=== PATIENT | male | born 1955 | race Caucasian/White ===

== ENCOUNTER 2021-12-19 10:15 | Outpatient (CLI) | payer MEDICARE, SELFPAY ==
--- NOTE | 2021-12-19 11:00 | NEURO_ITS ---
Impression: # Complains of numbness of hands. # Bilateral Carpal Tunnel Syndrome of moderate to severe degree, left more than right. # Right ulnar neuropathy across the elbow. # Abnormal needle/EMG exam. Nerve Conduction Studies Anti Sensory Summary Table Stim Site NR Peak (ms) P-T Amp (?V) Site1 Site2 Delta-P (ms) Dist (cm) Mayank (m/s) Left Median Anti Sensory (2-3nd Digit) Wrist 12.3 46.6 Wrist 2-3nd Digit 12.3 14.0 11 Wrist 11.4 5.5 Wrist 2-3nd Digit 12.3 14.0 11 Right Median Anti Sensory (2-3nd Digit) Wrist 5.9 9.4 Wrist 2-3nd Digit 5.9 14.0 24 Wrist 10.6 19.4 Wrist 2-3nd Digit 5.9 14.0 24 Left Radial Anti Sensory (Base 1st Digit) Wrist 2.3 16.5 Wrist Base 1st Digit 2.3 0.0 Right Radial Anti Sensory (Base 1st Digit) Wrist 2.7 4.9 Wrist Base 1st Digit 2.7 0.0 Left Ulnar Anti Sensory (5th Digit) Wrist 2.7 11.6 Wrist 5th Digit 2.7 14.0 52 Right Ulnar Anti Sensory (5th Digit) Wrist 2.8 4.2 Wrist 5th Digit 2.8 14.0 50 Motor Summary Table Stim Site NR Onset (ms) O-P Amp (mV) Site1 Site2 Delta-0 (ms) Dist (cm) Mayank (m/s) Left Median Motor (Abd Poll Brev) Wrist 8.0 1.8 Elbow Wrist 5.7 32.0 56 Elbow 13.7 0.1 Right Median Motor (Abd Poll Brev) Wrist 5.0 0.6 Elbow Wrist 5.9 28.0 47 Elbow 10.9 1.9 Left Ulnar Motor (Abd Dig Minimi) Wrist 2.7 5.3 A Elbow Wrist 6.0 31.0 52 A Elbow 8.7 4.1 Right Ulnar Motor (Abd Dig Minimi) Wrist 3.0 4.0 A Elbow Wrist 6.4 31.0 48 A Elbow 9.4 3.5 B Elbow Wrist 4.7 21.0 45 B Elbow 7.7 2.8 F Wave Studies NR F-Lat (ms) L-R F-Lat (ms) Left Median (Mrkrs) (Abd Poll Brev) 31.75 1.17 Right Median (Mrkrs) (Abd Poll Brev) 32.92 1.17 Left Ulnar (Mrkrs) (Abd Dig Min) 30.56 0.73 Right Ulnar (Mrkrs) (Abd Dig Min) 31.29 0.73 EMG Side Muscle Nerve Root Ins Act Fibs Amp Dur Recrt Comment Right 1stDorInt Ulnar C8-T1 Nml Nml Nml Nml Nml Right Ext Indicis Radial (Post Int) C7-8 Nml Nml Nml Nml Nml Right Ext Digitorum Radial (Post Int) C7-8 Nml Nml Nml Nml Nml Right BrachioRad Radial C5-6 Nml Nml Nml Nml Nml Right PronatorTeres Median C6-7 Nml Nml Nml Nml Nml Right Abd Poll Brev Median C8-T1 Nml Nml Nml >12ms Reduced Left 1stDorInt Ulnar C8-T1 Nml Nml Nml Nml Nml Left Ext Indicis Radial (Post Int) C7-8 Nml Nml Nml Nml Nml Left Ext Digitorum Radial (Post Int) C7-8 Nml Nml Nml Nml Nml Left BrachioRad Radial C5-6 Nml Nml Nml Nml Nml Left PronatorTeres Median C6-7 Nml Nml Nml Nml Nml Left Abd Poll Brev Median C8-T1 Nml Nml Nml >12ms Reduced Right ABD Dig Min Ulnar C8-T1 Nml Nml Nml Nml Nml Left ABD Dig Min Ulnar C8-T1 Nml Nml Nml Nml Nml MTDD
== END 2021-12-19 10:16 | disposition home or self-care (01) ==
LOC: ANHNEURO 10:16
PROVIDERS: Visit Provider Physician Assistant
DX: R20.2 Paresthesia of skin (principal); G56.03 Carpal tunnel syndrome, bilateral upper limbs; G56.21 Lesion of ulnar nerve, right upper limb; R94.131 Abnormal electromyogram [EMG]
CPT/HCPCS: 95886; 95911

== ENCOUNTER 2024-03-11 07:47 | Outpatient (CLI) | payer MEDICARE, SELFPAY ==
--- NOTE | ~2024-03-11 | MR_ITS ---
Procedure: MR lumbar spine wo con Ordering provider: Cecilia Weiss, CARMINA History: . Lumbar radiculopathy . Comparison: None. Technique: MRI lumbar spine without contrast. FINDINGS: SPINAL CORD: Normal. The cord ends at the level of T12-L1. VERTEBRAL BODIES: Slight Loss of height of T12 is seen anteriorly which is chronic. Otherwise, Normal height and alignment. No compression fracture. Normal marrow signal. DISK SPACES: Normal. T12-L1: Mild diffuse disc bulge with mild spinal canal stenosis. Narrowing of the foramina with no de finite root compression. L1-L2: No stenosis. Slight thickening of the ligamenta flava. No significant intervertebral foraminal narrowing. L2-L3: Moderate spinal canal stenosis. Diffuse disc bulge. Thickening of the ligamenta flava. Bilater al narrowing of the foramina with no definite root compression. L3-L4: Severe spinal canal stenosis diffuse disc bulge. Thickening of the ligamenta flava. Bilateral facet joint disease. Bilateral narrowing of the foramina with bilateral nerve root compression. L4-L5: Severe spinal canal stenosis diffuse disc bulge. Thickening of the ligamenta flava. Bilateral nerve root compression. L5-S1: Mild diffuse disc bulge. PARASPINOUS SOFT TISSUES: Subcutaneous edema is noted. 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 IMPRESSION: No compression fracture. Multilevel degenerative disc disease with variable degrees of spinal canal stenosis, intervertebral f oraminal narrowing and with nerve root compression. Reviewed, dictated and finalized at location A. [employer] IMPRESSION: No compression fracture. Multilevel degenerative disc disease with variable degrees of spinal canal sten osis, intervertebral foraminal narrowing and with nerve root compression.
== END 2024-03-11 07:48 | disposition home or self-care (01) ==
LOC: MICIMG 07:49
PROVIDERS: PCP Physician Assistant; Visit Provider Physician Assistant
DX: M51.369 Other intervertebral disc degeneration, lumbar region without mention of lumbar back pain or lower extremity pain (principal); M48.061 Spinal stenosis, lumbar region without neurogenic claudication
CPT/HCPCS: 72148

== ENCOUNTER 2025-03-08 00:08 | Day surgery (SDC) | payer MEDICARE, SELFPAY ==
[2025-02-22 12:03] VITALS: BMI 41.8
--- OUTSIDE RECORDS SUMMARY | 2025-03-08 00:10 | XMS_ITS | Patient Health Record ---
Author Organization 1 OF [facility] Address [address] [place] [phone] Support Name Relationship Address Phone Adrián Rodríguez Guarantor Unknown Unavailable Reason For Referral No Information Plan Of Treatment No Information
--- OUTSIDE RECORDS SUMMARY | 2025-03-08 00:10 | XMS_ITS | Data Portability ---
Author Organization [facility] IQRAGillian Address [address] [facility] [place] [address] Care Team Providers Care Food Service Kitchen Supervisor Name Role Phone AUSTINRITU HERNÁNDEZ Primary Care Provider Unavailab le Assessment Encounter Date Assessment Date Assessment LastModified by Organization Details LastModified Time 08/16/2023 08/16/2023 PSA november 2022 microalbumin urine november 2022. Colonoscopy april 2019. repeat next 2024. completed at [facility]. Not available 08/16/2023 10:52:05 02/14/2024 02/14/2024 PSA november 2022, the lab didn't draw new orders that were sent. we will have to send him back microalbumin urine november 2022. Colonoscopy april 2019. repeat next year 2024. completed at [facility]. Sharon UTD eye exam dental exam: UTD routine cleanings. Not available 02/14/2024 10:46:43 08/21/2024 08/21/2024 PSA up-to-date January 2024 microalbumin urine July 2024 Colonoscopy april 2019. repeat next year 2024. completed at [facility]. Eye exam due in September, scheduled. dental exam: UTD routine cleanings. Not available 08/21/2024 11:03:47 02/26/2025 02/26/2025 PSA up-to-date January 2025 at 1.78 microalbumin urine July 2024 Colonoscopy april 2019. repeat next 2024. planned mar 09. Eye exam dental exam: UTD routine cleanings. Not available 02/26/2025 11:16:57 Plan of Treatment Reminders Order Date Submit Date Provider Last Modified By Organization Details Last Modified Time Details Appointments ANY 15 2025 10:30A M LEE Brewster Not available Not available Not available Lab HbA1c (hemog lobin A1c), blood 2024 026 [facility], [address], [address], [place], [address], 02/26/2025 11:02:22 microa lbumin /creat inine, mass ratio, urine 2024 026 [facility], [address], [address], [place], [address], 02/26/2025 11:02:22 BMP, serum or plasma 2024 026 [facility], [address], [address], [place], [address], 02/26/2025 11:02:22 hepati c functi on panel, serum 2024 026 [facility], [address], [address], [place], [address], 02/26/2025 11:02:22 lipid panel, serum 2024 026 [facility], [address], [address], [place], [address], 02/26/2025 11:02:22 CBC w/ auto diff 2024 026 [facility], [address], [address], [place], [address], 02/26/2025 11:02:22 BMP, serum or plasma 2024 025 KO [facility], [address], [place], [address], 02/18/2025 04:22:44 hepati c functi on panel, serum 2024 025 [facility], [address], [place], [address], 02/18/2025 04:22:44 CBC w/ auto diff 2024 025 [facility], [address], [place], [address], 02/18/2025 04:22:45 lipid panel, serum 2024 025 [facility], [address], [place], [address], 02/18/2025 04:22:43 TSH, serum or plasma 2024 025 [facility], [address], [address], [place], [address], 02/18/2025 04:22:46 HbA1c (hemog lobin A1c), blood 2024 025 [facility], [address], [place], [address], 02/18/2025 04:22:46 PSA, serum or plasma 2024 025 [facility], [address], [address], [place], [address], 02/18/2025 04:22:45 HbA1c (hemog lobin A1c), blood 2023 025 [facility], [address], [place], [address], 08/12/2024 11:16:30 microa lbumin /creat inine, mass ratio, urine 2023 025 [facility], [address], [address], [place], [address], 08/12/2024 11:16:29 BMP, serum or plasma 2023 025 [facility], [address], [place], [address], 08/12/2024 11:16:30 hepati c functi on panel, serum 2023 025 [facility], [address], [place], [address], 08/12/2024 11:16:30 CBC w/ auto diff 2023 025 [email or web address] [facility], [address], [place], [address], 08/20/2024 16:06:28 lipid panel, serum 2023 025 [facility], [address], [place], [address], 08/12/2024 11:16:30 HbA1c (hemog lobin A1c), blood 2023 024 [facility], [address], [place], [address], 08/19/2023 09:27:51 BMP, serum or plasma 2023 024 [facility], [address], [place], [address], 11/17/2023 09:54:42 hepati c functi on panel, serum 2023 024 [email or web address] [facility], [address], [place], [address], 09/05/2023 11:07:14 CBC w/ auto diff 2023 024 [email or web address] [facility], [address], [place], [address], 09/05/2023 11:07:14 lipid panel, serum 2023 024 KO [facility], [address], [place], [address], 08/19/2023 09:27:51 Referral None record ed. Procedures colono scopy screen ing (PROC) [address] [facility], [address], [address], [place], [address], 01/20/2025 11:49:06 Surgeries None record ed. Imaging MRI, lumbar spine, w/o contra st 2023 024 [facility], [address], [address], [place], [address], 03/11/2024 13:07:38 Medication Orders Ozempi c 2 mg/dos e (8 mg/3 mL) subcut aneous pen inject or 2024 025 [email or web address] [facility], [address] [place] [address], [address], [place], [place], [id number], 11/06/2024 21:20:42 hydroc hlorot hiazid e 25 mg tablet 2024 025 KO [facility], [address], [address], [place], [place], [id number], 08/21/2024 11:05:05 ipratr opium bromid e 42 mcg (0.06 %) nasal spray 2023 024 [id number], [address], [place], [address], 02/14/2024 10:46:48 Jardia nce 25 mg tablet 2023 024 [place] [facility], [address] [place] [address], [facility] [address], [place], [place], [id number], 08/16/2023 11:03:09 hydroc hlorot hiazid e 25 mg tablet 2023 024 KO [facility], [address] [place] [address], [address], [place], [place], [id number], 08/16/2023 11:03:09 Patient TargetsNo targets recorded. Patient Instructions Encounter Date Encounter Id Patient Instructions Last Modified By Organization Details Last Modified Time 02/14/2024 [id number] A healthy lifestyle: care instructions Not available 02/14/2024 10:46:45 08/21/2024 [id number] A healthy lifestyle: care instructions Not available 08/21/2024 11:05:00 02/26/2025 [id number] A healthy lifestyle: care instructions Not available 02/26/2025 11:02:22 Reason for Referral None Reported. Results Created Date Observation Date Name Description Value Unit Range Abnormal Flag Note LastModifiedBy Organization Detail LastModifiedTime 02/04/20 24 02/04/2024 HbA1c (hemo globi n A1c), blood HbA1C (hemoglobin A1C), blood 6.2 %_of_ total _HGB text: <5.7 high For someo ne witho ut known diabe louie, a hemog lobin A1c value betwe en 5.7% and 6.4% is consi stent with predi abete s and shoul d be confi rmed with a follo w-up test. For someo ne with known diabe louie, a value <7% indic ates that their diabe louie is well contr olled . A1c targe ts shoul d be indiv idual ized based on durat ion of diabe louie, age, comor bid condi tions , and other consi derat ions. This assay resul t is consi stent with an incre ased risk of diabe louie. Curre ntly, no conse nsus exist s ace sheets use of hemog lobin A1c for diagn osis of diabe louie for child wayne. Not Available Not Available 02/25/2025 17:32:42 02/04/2002/04/2024 HbA1c (hemo globi n A1c), blood estimated average glucose 131 mg/dL Not Available Not Available 01/29 17:32:42 02/04/2002/04/2024 HbA1c (hemo globi n A1c), blood glucose mean, quantitative , blood 7.3 mmol/ L Not Available Not Available 02/26/20 17:32:42 02/04/2002/04/2024 TSH + free T4, serum TSH, serum, reflex free T4 1.9 mIU/L text: 0.40-4 .50 Not Available Not Available 02/25/2025 17:32:42 02/04/2002/04/2024 TSH + free T4, serum T4, free, serum 1.2 NG/dL text: 0.8-1. 8 Not Available Not Available 02/25/2025 17:32:42 02/18/2002/18/2025 LIPID PANEL WITH RATIO S cholesterol, total 98 mg/dL <200 normal Not Available [address], [address], 02/18/2025 04:22:43 02/18/2002/18/2025 LIPID PANEL WITH RATIO S HDL cholesterol 33 mg/dL > or = 40 low Not Available [facility] [address], [address], 02/18/2025 04:22:43 02/18/2002/18/2025 LIPID PANEL WITH RATIO S triglyceride s 132 mg/dL <150 normal Not Available [facility] [address], [address], 02/18/2025 04:22:43 02/18/20 25 02/18/2025 LIPID PANEL WITH RATIO S LDL-choleste rol 43 mg/dL _(robert c) normal Refer ence range : <100 Bill able range <100 mg/dL for prima ry preve ntion ; <70 mg/dL for patie nts with CHD or diabe tic patie nts with > or = 2 CHD risk facto rs. LDL-C is now calcu lated using the Naima n-Hop kins calcu rosa isela bray, which is a valid ated novel metho d provi ding román r accur acy than the Fried priscilla equat ion in the estim ation of LDL-C . Naima bray SS et al. SHEILA. 2013; 310(1 9): 206- 2067 (http ://ed ucati on.Qu estDi Checkr. com/f aq/FA Q164) Not Available [facility] [address], [address], 02/18/2025 04:22:43 02/18/2002/18/2025 LIPID PANEL WITH RATIO S chol/HDLC ratio 3.0 (calc ) <5.0 normal Not Available [facility] [address], [address], 02/18/2025 04:22:43 02/18/2002/18/2025 LIPID PANEL WITH RATIO S LDL/HDL ratio 1.3 (calc ) Below [place] Risk: <2.28 [place] Risk: 2.29- 4.90 Moder ate Risk: 4.91- 7.12 High Risk: >7.13 Not Available [facility] [address], [address], 02/18/2025 04:22:43 02/18/2002/18/2025 LIPID PANEL WITH RATIO S non HDL cholesterol 65 mg/dL _(robert c) <130 normal For patie nts with diabe louie plus 1 major ASCVD risk facto r, treat ing to a non-H DL-C goal of <100 mg/dL (LDL- C of <70 mg/dL ) is consi torried a harry dietz optio n. Not Available [facility] [address] [address] [place], [address], 02/18/2025 04:22:43 02/18/2002/18/2025 BASIC METAB OLIC PANEL glucose 117 mg/dL 65-99 high Fasti ng refer ence inter hesham For someo ne witho ut known diabe louie, a gluco se value betwe en 100 and 125 mg/dL is consi stent with predi abete s and shoul d be confi rmed with a follo w-up test. Not Available [address], [address], 02/18/2025 04:22:44 02/18/2002/18/2025 BASIC METAB OLIC PANEL urea nitrogen (BUN) 30 mg/dL 7-25 high Not Available [address], [address], 02/18/2025 04:22:44 02/18/2002/18/2025 BASIC METAB OLIC PANEL creatinine 1.48 mg/dL 0.70-1 .28 high Not Available [address] [address] [place], [address], 02/18/2025 04:22:44 02/18/2002/18/2025 BASIC METAB OLIC PANEL eGFR 50 mL/mi n/1.7 3m2 > or = 60 low Not Available [address], [address], 02/18/2025 04:22:44 02/18/2002/18/2025 BASIC METAB OLIC PANEL BUN/creatini ne ratio 20 (calc ) 6-22 normal Not Available [address], [address], 02/18/2025 04:22:44 02/18/2002/18/2025 BASIC METAB OLIC PANEL sodium 140 mmol/ L 135-14 6 normal Not Available [address], [address], 02/18/2025 04:22:44 02/18/2002/18/2025 BASIC METAB OLIC PANEL potassium 4.7 mmol/ L 3.5-5. 3 normal Not Available [address], [address], 02/18/2025 04:22:44 02/18/2002/18/2025 BASIC METAB OLIC PANEL chloride 105 mmol/ L 98-110 normal Not Available [address], [address], 02/18/2025 04:22:44 02/18/2002/18/2025 BASIC METAB OLIC PANEL carbon dioxide 31 mmol/ L 20-32 normal Not Available [address], [address], 02/18/2025 04:22:44 02/18/2002/18/2025 BASIC METAB OLIC PANEL calcium 10.1 mg/dL 8.6-10 .3 normal Not Available [address], [address], 02/18/2025 04:22:44 02/18/2002/18/2025 HEPAT IC FUNCT ION PANEL protein, total 6.9 g/dL 6.1-8. 1 normal Not Available [address], [address], 02/18/2025 04:22:44 02/18/2002/18/2025 HEPAT IC FUNCT ION PANEL albumin 4.3 g/dL 3.6-5. 1 normal Not Available [address], [address], 02/18/2025 04:22:44 02/18/2002/18/2025 HEPAT IC FUNCT ION PANEL globulin 2.6 g/dL_ (calc ) 1.9-3. 7 normal Not Available [address], [address], 02/18/2025 04:22:44 02/18/2002/18/2025 HEPAT IC FUNCT ION PANEL albumin/glob ulin ratio 1.7 (calc ) 1.0-2. 5 normal Not Available [address], [address], 02/18/2025 04:22:44 02/18/2002/18/2025 HEPAT IC FUNCT ION PANEL bilirubin, total 0.7 mg/dL 0.2-1. 2 normal Not Available [address], [address], 02/18/2025 04:22:44 02/18/2002/18/2025 HEPAT IC FUNCT ION PANEL bilirubin, direct 0.2 mg/dL < or = 0.2 normal Not Available [address], [address], 02/18/2025 04:22:44 02/18/2002/18/2025 HEPAT IC FUNCT ION PANEL bilirubin, indirect 0.5 mg/dL _(robert c) 0.2-1. 2 normal Not Available [address], [address], 02/18/2025 04:22:44 02/18/2002/18/2025 HEPAT IC FUNCT ION PANEL alkaline phosphatase 69 U/L 35-144 normal Not Available [address] [address] [place], [address], 02/18/2025 04:22:44 02/18/2002/18/2025 HEPAT IC FUNCT ION PANEL AST 19 U/L 10-35 normal Not Available [address], [address], 02/18/2025 04:22:44 02/18/2002/18/2025 HEPAT IC FUNCT ION PANEL ALT 21 U/L 9-46 normal Not Available [address], [address], 02/18/2025 04:22:44 02/18/2002/18/2025 CBC (INCL UDES DIFF/ PLT) white blood cell count 6.2 thous and/u L 3.8-10 .8 normal Not Available [address], [address], 02/18/2025 04:22:45 02/18/2002/18/2025 CBC (INCL UDES DIFF/ PLT) red blood cell count 5.22 cyndi on/uL 4.20-5 .80 normal Not Available [address], [address], 02/18/2025 04:22:45 02/18/2002/18/2025 CBC (INCL UDES DIFF/ PLT) hemoglobin 17.0 g/dL 13.2-1 7.1 normal Not Available [address], [address], 02/18/2025 04:22:45 02/18/2002/18/2025 CBC (INCL UDES DIFF/ PLT) hematocrit 52.5 % 38.5-5 0.0 high Not Available [address], [address], 02/18/2025 04:22:45 02/18/2002/18/2025 CBC (INCL UDES DIFF/ PLT) MCV 100.6 fL 80.0-1 00.0 high Not Available [address], [address], 02/18/2025 04:22:45 02/18/2002/18/2025 CBC (INCL UDES DIFF/ PLT) MCH 32.6 pg 27.0-3 3.0 normal Not Available [address], [address], 02/18/2025 04:22:45 02/18/2002/18/2025 CBC (INCL UDES DIFF/ PLT) MCHC 32.4 g/dL 32.0-3 6.0 normal For adult s, a sligh t decre ase in the calcu lated MCHC value (in the range of 30 to 32 g/dL) is most likel y not clini joe signi ficdena t; stefania er, it shoul d be inter prete d with cauti on in [facility] n with other red cell keon eters and the patie nt's clini robert condi tion. Not Available [facility] [address], [address], 02/18/2025 04:22:45 02/18/2002/18/2025 CBC (INCL UDES DIFF/ PLT) RDW 13.0 % 11.0-1 5.0 normal Not Available [address], [address], 02/18/2025 04:22:45 02/18/2002/18/2025 CBC (INCL UDES DIFF/ PLT) platelet count 123 thous and/u L 140-40 0 low Not Available [address], [address], 02/18/2025 04:22:45 02/18/2002/18/2025 CBC (INCL UDES DIFF/ PLT) MPV 11.5 fL 7.5-12 .5 normal Not Available [facility] [address], [address], 02/18/2025 04:22:45 02/18/2002/18/2025 CBC (INCL UDES DIFF/ PLT) absolute neutrophils 3261 cells /uL 1500-7 800 normal Not Available [facility] [address], [address], 02/18/2025 04:22:45 02/18/2002/18/2025 CBC (INCL UDES DIFF/ PLT) absolute lymphocytes 1959 cells /uL 850-39 00 normal Not Available [address], [address], 02/18/2025 04:22:45 02/18/2002/18/2025 CBC (INCL UDES DIFF/ PLT) absolute monocytes 694 cells /uL 200-95 0 normal Not Available [address], [address], 02/18/2025 04:22:45 02/18/2002/18/2025 CBC (INCL UDES DIFF/ PLT) absolute eosinophils 267 cells /uL 15-500 normal Not Available [address], [address], 02/18/2025 04:22:45 02/18/2002/18/2025 CBC (INCL UDES DIFF/ PLT) absolute basophils 19 cells /uL 0-200 normal Not Available [address], [address], 02/18/2025 04:22:45 02/18/2002/18/2025 CBC (INCL UDES DIFF/ PLT) neutrophils 52.6 % normal Not Available [address], [address], 02/18/2025 04:22:45 02/18/2002/18/2025 CBC (INCL UDES DIFF/ PLT) lymphocytes 31.6 % normal Not Available [address], [address], 02/18/2025 04:22:45 02/18/2002/18/2025 CBC (INCL UDES DIFF/ PLT) monocytes 11.2 % normal Not Available [address], [address], 02/18/2025 04:22:45 02/18/2002/18/2025 CBC (INCL UDES DIFF/ PLT) eosinophils 4.3 % normal Not Available [address], [address], 02/18/2025 04:22:45 02/18/20 25 02/18/2025 CBC (INCL UDES DIFF/ PLT) basophils 0.3 % normal Not Available [facility] [address], [address], 02/18/2025 04:22:45 02/18/2002/18/2025 PSA, TOTAL PSA, total 1.78 NG/mL < or = 4.00 normal The total PSA value from this assay syste m is stand ardiz ed again st the WHO stand wilmer. The test resul t will be appro ximat carlitos 20% lower when memo red to the equim olar- stand ardiz ed total PSA (Youssef man Coult er). Memo rison of seria l PSA resul ts shoul d be inter prete d with this fact in mind. This test was perfo rmed using the [employer] chemi lumin escen t metho d. Value s obtai valeriano from diffe rent assay metho ds canno t be used inter walter eably . PSA level s, regar dless of value , shoul d not be inter prete d as absol agdaagux evide nce of the prese nce or absen ce of disea se. Not Available [address], [address], 02/18/2025 04:22:45 02/18/2002/18/2025 TSH W/REF REYNALDO TO FT4 TSH w/reflex to FT4 1.88 mIU/L 0.40-4 .50 normal Not Available [address], [address], 02/18/2025 04:22:46 02/18/2002/18/2025 HEMOG LOBIN A1C hemoglobin A1C 6.0 %_of_ total _HGB <5.7 high For someo ne witho ut known diabe louie, a hemog lobin A1c value betwe en 5.7% and 6.4% is consi stent with predi abete s and shoul d be confi rmed with a follo w-up test. For someo ne with known diabe louie, a value <7% indic ates that their diabe louie is well contr olled . A1c targe ts shoul d be indiv idual ized based on durat ion of diabe louie, age, comor bid condi tions , and other consi derat ions. This assay resul t is consi stent with an incre ased risk of diabe louie. Curre ntly, no conse nsus exist s regar ding use of hemog lobin A1c for diagn osis of diabe louie for child wayne. Not Available [facility] [address], [place], [address], 02/18/2025 04:22:46 09/11/19 24 09/10/2023 US, echoc ardio gram No observ ation record ed. [facility] [address], [place], [address], 03/01/2024 17:03:22 10/07/19 24 10/04/2023 NM, myoca rdial perfu bessie scan No observ ation record ed. [facility] [address], [place], [address], 03/01/2024 17:03:21 03/11/20 24 03/11/2024 MRI, lumba r spine , w/o contr ast No observ ation record ed. [facility] [address], [place], [address], 03/19/2024 14:31:32 04/02/20 24 04/02/2024 US, renal No observ ation record ed. [facility] [address], [place], [address], 04/02/2024 21:15:08 10/07/19 25 10/06/2024 , echo ardio gram No observ ation record ed. [facility] [address], [place], [address], 10/17/2024 22:00:54 Result Notes None recorded. Problems Name Problem SNOMED Code Status Onset Date Resolution Date Notes Provider Name and Address Organization Details Recorded Time Type 2 diabetes mellitus 49473596 Active 2023 Ibis [place] [facility] 4 10:43:00 Diabetic peripheral neuropathy 393369415 Active 2023 Ibis [place] [facility] 4 10:43:13 Mixed hyperlipide andrey 359011521 Active 2023 Ibis [place] [facility] 4 10:43:20 Obstructive sleep apnea syndrome 80786435 Active 2023 Ibis [place] [facility] 4 10:43:27 Benign essential hypertensio n 6363678 Active 2023 Ibis [place] [facility] 4 10:43:34 Coronary atheroscler osis 524873292 Active 2023 Ibis [place] [facility] 4 10:43:45 Gastroesoph ageal reflux disease 589343817 Active 2023 [place]bis [place] [facility] 4 10:43:53 Chronic kidney disease stage 3 289523855 Active 2023 Ibis [place] [facility] 4 10:44:10 Degeneratio n of lumbosacral interverteb ral disc 03603816 Active 2023 Ibis [place] [facility] 4 10:44:26 Osteoarthri tis of left hip joint 3651840841356 08 Active 2023 Ibis [place] [facility] 4 10:44:59 Carpal tunnel syndrome 39250585 Active 2023 [place]bis [place] [facility] 4 10:45:09 Obesity 365498330 Active 2023 [place]bis [place] [facility] 4 10:48:14 Uncontrolle d type 2 diabetes mellitus 166840721 Active 2023 LEE Brewster Attn: Accountin g,[address] [place], [address], [place] [facility] 4 22:59:56 Hyperlipide andrey 60587079 Active 2023 LEE Brewster Attn: Accountin g,[address] [place], [address] [facility] 4 23:00:00 Gastroesoph ageal reflux disease without esophagitis 447147503 Active 2023 LEE Brewster Attn: Accountin g,[address] [place], [address] [facility] 4 23:00:01 History of placement of stent for coronary artery disease 008875507 Active 2023 LEE Brewster Attn: Accountin g,[address] [place], [address], [place] [facility] 4 23:00:02 Long-term drug therapy Active 2023 LEE Brewster Attn: Accountin g,[address] [place], [address] [facility] 4 23:00:03 Body mass index 40+ - severely obese 365143172 Active 2023 LEE Brewster Attn: Accountin g,[address] [place], [address], [place] [facility] 5 10:43:44 Well controlled type 2 diabetes mellitus 769084966 Active 2023 LEE Brewster Attn: Accountniall barba,[address] [place], [address], [place] [facility] 4 10:43:36 Anterior rhinorrhea 103005010 Active 2023 LEE Brewster Attn: Accountniall g,[address] [place], [address], [place] [facility] 4 10:43:40 Lumbar radiculopat hy 579548867 Active 2023 LEE Brewster Attn: Accountniall g,[address] [place], [address], [place] [facility] 4 17:05:10 Obese class III 043570867 Active 2024 LEE Brewster Attn: Accountin g,[address] [place], [address], [place] [facility] 5 17:39:52 History of polyp of colon 544308962 Active 2024 LEE Brewster Attn: Accountniall g,[address] [place], [address], [place] [facility] 5 17:40:50 Chronic kidney disease stage 3A 789070713 Active 2024 LEE Brewster Attn: Accountin g,[address] [facility], [place], [address], [place] [facility] 5 01:25:28 Platelet count below reference range 894861102 Active 2024 LEE Brewster Attn: Accountniall g,[address] [place], [address], [place] [facility] 5 11:01:59 Paroxysmal atrial fibrillatio n 436314983 Active 2024 LEE Brewster Attn: Accountin g,[address] [facility] [place], [address], [place] [facility] 5 11:04:55 Drug therapy finding 466432182 Active 2024 LEE Brewster Attn: Santiago barba,[address] [facility], [place], [address], [place] [facility] 5 21:57:33 Problem Notes None recorded. Procedures Surgical History Date Name Laterality Status Provider Name and Address Organization Details Recorded Time 3 Carpal tunnel surgery completed Ibis Toney [place] - [facility] 08/16/2023 10:46:54 2 Carpal tunnel surgery completed Ibis Toney [place] [facility] 08/16/2023 10:46:49 0 colonoscopy completed Ibis Toney [place] - [facility] 08/16/2023 10:47:13 3 Cabg vein three completed Ibis Toney [place] [facility] 08/16/2023 10:47:26 Orthopedic surgery ss completed Ibis Toney [place] - [facility] 08/16/2023 10:46:22 Knee arthroscopy/karla be completed Ibis Toney [place] - [facility] 08/16/2023 10:46:35 Imaging Results None recorded. Procedure Notes None recorded. Medical Equipment None Reported. Allergies Allergen ID Allergen Name Allergen Category Reaction Reaction Severity Criticality Documentation Date Start Date Code Code System Note Provider Name and Address Organization Details Recorded Time [id number] Lasix medicatio n hives Not available Not available 08/16/2023 1 RxNorm Ibis joseph, [place] - [facility] 4 10:33:39 [id number] Product containin g penicilli n (product) medicatio n hives Not available Not available 08/16/2023 [id number] SNOMED Ibis joseph, [place] [facility] 10:42:18 Medications Name Sig Start Date Stop Date Status Note LastModified by Organization Details LastModified Time losartan 50 mg tablet TAKE 1 TABLET BY MOUTH EVERY DAY 08/21 completed Not Available Not Available Not Available atorvastati n 80 mg tablet TAKE 1 TABLET BY MOUTH DAILY active Not Available Not Available No t Available clindamycin HCl 300 mg capsule TAKE 1 CAPSULE BY MOUTH EVERY 8 HOURS UNTIL GONE 02/13 completed Not Available Not Available Not Available lisinopril 20 mg tablet 08/21 completed Not Available Not Available Not Available metoprolol succinate ER 100 mg tablet,exte nded release 24 hr TAKE 1 TABLET BY MOUTH DAILY active Not Available Not Available No t Available Lipitor 20 mg tablet Take 1 tablet every day by oral route. 03/07 completed Not Available Not Available Not Available glimepiride 1 mg tablet TAKE 1 TABLET BY MOUTH TWICE DAILY WITH MEALS 2024 active Not Available Not Available Not Avai lable oxycodone-a cetaminophe n 5 mg-325 mg tablet TAKE 1/2 TO 1 TABLET BY MOUTH EVERY 4 TO 6 HOURS NEEDED FOR PAIN *MAX: 4 TABS/DAY* active Not Available Not Available No t Available doxycycline monohydrate 100 mg capsule TAKE 1 CAPSULE BY MOUTH TWICE DAILY WITH FOOD FOR 7 DAYS 08/15 completed Not Available Not Available Not Available ibuprofen 400 mg tablet TAKE 1 TABLET BY MOUTH EVERY 6 HOURS NEEDED active Not Available Not Available No t Available nitroglycer in 0.[address] by sublingua l route as needed for 68 days. active prn Not Available Not Available No t Available omeprazole 20 mg capsule,del ayed release Take 1 capsule every day by oral route. active Not Available Not Available No t Available montelukast 10 mg tablet TAKE 1 TABLET BY MOUTH DAILY 2024 active Not Available Not Available Not Avai lable hydrochloro thiazide 25 mg tablet Take 1 tablet every day by oral route. 2024 active Not Available Not Available Not Avai lable ipratropium bromide 42 mcg (0.06 %) nasal spray 2 sprays intra nostril route 3 times daily as needed 2024 active Not Available Not Available Not Avai lable ondansetron 4 mg disintegrat ing tablet TAKE 1 TABLET BY MOUTH EVERY 6 HOURS NEEDED FOR NAUSEA active Not Available Not Available No t Available cefdinir 300 mg capsule TAKE 1 CAPSULE BY MOUTH EVERY 12 HOURS 08/21 completed Not Available Not Available Not Available losartan 100 mg tablet Take 1 tablet every day by oral route. active Not Available Not Available No t Available chlorhexidi ne gluconate 0.12 % mouthwash RINSE MOUTH WITH 15ML (1 CAPFUL) FOR 30 SECONDS IN MORNING AND EVENING AFTER BRUSHING, THEN SPIT 02/26 completed Not Available Not Available Not Available Januvia 100 mg tablet One tab p.o. daily 2024 active Not Available Not Available Not Avai lable hydrochloro thiazide 12.5 mg tablet TAKE 1 TABLET BY MOUTH EVERY DAY 08/15 completed Not Available Not Available Not Available loratadine 10 mg capsule Take by oral route. active Not Available Not Available No t Available Eliquis 5 mg tablet Take 1 tablet twice a day by oral route. active Not Available Not Available No t Available Jardiance 25 mg tablet TAKE 1 TABLET BY MOUTH DAILY 2024 active Not Available Not Available Not Avai lable Trulicity 3 mg/0.5 mL subcutaneou s pen injector 02/13 completed Not Available Not Available Not Available Ozempic 1 mg/dose (4 mg/3 mL) subcutaneou s pen injector INJECT 1 MG SUBCUTANE OUSLY ONE TIME PER WEEK 08/21 completed Not Available Not Available Not Available aspirin 81 mg capsule Take 1 capsule every day by oral route. 02/26 completed Not Available Not Available Not Available Ozempic 2 mg/dose (8 mg/3 mL) subcutaneou s pen injector Inject 2 mg every week by subcutane ous route. 2024 active Not Available Not Available Not Avai lable Ozempic 0.25 mg or 0.5 mg (2 mg/3 mL) subcutaneou s pen injector INJECT 0.5 MG SUBCUTANE OUSLY ONCE A WEEK 08/21 completed Not Available Not Available Not Available Eliquis 0.5 mg tablet for oral suspension Take by oral route. 02/26 completed Not Available Not Available Not Available Vitals Date Recorded Systolic And Diastolic Systolic And Diastolic Provider Name and Address Organization Details Last Updated DateTime 08/16/2023 140/80 mm[Hg] 150/80 mm[Hg] LEE Brewster Attn: Accounting,[address] [facility], [place], [address], [place] [facility] 08/16/2023 11:01:05 Date Recorded Body height Body mass index (BMI) Body weight Oxygen saturation Oxygen saturation in Arterial blood by Pulse oximetry Heart rate Systolic And Diastolic Provider Name and Address Organization Details Last Updated DateTime 4 180.34 cm 42 kg/m2 678561. 3 g 97 % 97 % 78 /min 138/82 mm[Hg] Naveed Paniagua MA [facility] 4 10:25:38 Date Recorded Body height Body mass index (BMI) Body weight Heart rate Oxygen saturation Oxygen saturation in Arterial blood by Pulse oximetry Systolic And Diastolic Provider Name and Address Organization Details Last Updated DateTime 5 180.34 cm 40.6 kg/m2 159111. 38 g 86 /min 96 % 96 % 130/78 mm[Hg] Hira Nino MA [facility] 5 10:38:13 Date Recorded Systolic And Diastolic Provider Name and Address Organization Details Last Updated DateTime 02/14/2024 128/80 mm[Hg] LEE Brewster Attn: Accounting[address] [place], [address], [facility] 02/14/2024 10:48:16 Date Recorded Body height Body mass index (BMI) Body weight Respiratory rate Oxygen saturation Oxygen saturation in Arterial blood by Pulse oximetry Heart rate Systolic And Diastolic Provider Name and Address Organization Details Last Updated DateTime 4 180.34 cm 42 kg/m2 776379. 3 g 18 /min 97 % 97 % 71 /min 138/88 mm[Hg] Naveed Paniagua MA [facility] 4 10:19:55 Date Recorded Systolic And Diastolic Provider Name and Address Organization Details Last Updated DateTime 02/26/2025 124/80 mm[Hg] LEE Brewster Attn: Accounting[address] [place], [address], [facility] 02/26/2025 11:14:31 Date Recorded Body height Body mass index (BMI) Body weight Respiratory rate Oxygen saturation Oxygen saturation in Arterial blood by Pulse oximetry Heart rate Systolic And Diastolic Provider Name and Address Organization Details Last Updated DateTime 5 180.34 cm 41 kg/m2 638357. 08 g 18 /min 98 % 98 % 84 /min 130/80 mm[Hg] Naveed Paniagua [place] [facility] 10:42:40 Social History Question Answer Notes LastModified by Organizat ion Details LastModified Time Tobacco Smoking Status Former Smoker Naveed Paniagua MA null, [place] - [facility] 08/16/2023 10:22:11 Do You Have An Advance Directive? No [email or web address] Information not available 08/16/2023 Are You Blind Or Do You Have Difficulty Seeing? No Glasses Information not available 08/16/2023 What Is Your Level Of Caffeine Consumption? Occasional Coffee, Tea Information not available 08/16/2023 In The 14 Days Before Symptom Onset, Have You Had Close Contact With A Laboratory-confir med COVID-19 While That Case Was Ill? No Information not available 08/16/2023 In The 14 Days Before Symptom Onset, Have You Had Close Contact With A Person Who Is Under Investigation For COVID-19 While That Person Was Ill? No Information not available 08/16/2023 Have You Been To An Area Known To Be High Risk For COVID-19? No Information not available 08/16/2023 Are You Deaf Or Do You Have Serious Difficulty Hearing? No Information not available 08/16/2023 What Type Of Diet Are You Following? REGULAR Carb Free Information not available 08/16/2023 Are There Any Guns Present In Your Home? No Information not available 08/16/2023 What Was The Date Of Your Most Recent Tobacco Screening? 02/26/2025 Information not available 02/26/2025 What Is Your Current Pack Years? [email or web address] Information not available 08/16/2023 What Is Your Relationship Status? [email or web address] Information not available 08/16/2023 Do You Use Your Seat Belt Or Car Seat Routinely? Yes Information not available 08/16/2023 Do You Have Smoke And Carbon Monoxide Detectors In Your Home? Yes Information not available 08/16/2023 At What Age Did You Start Smoking Tobacco? 12 Information not available 08/16/2023 How Much Tobacco Do You Smoke? No Information not available 08/16/2023 Do You Use Sunscreen Routinely? No Information not available 08/16/2023 Has Tobacco Cessation Counseling Been Provided? Yes Information not available 08/16/2023 On What Date Was Tobacco Cessation Counseling Provided? 02/26/2025 Information not available 02/26/2025 How Many Years Have You Smoked Tobacco? 46 Information not available 08/16/2023 Sex: Male Functional Status Question Answer Note LastModified by Organizat ion Details LastModified Time Do you use any illicit or recreational drugs? No Information not available 08/16/2023 Do you or have you ever used any other forms of tobacco or nicotine? No Information not available 08/16/2023 What is your level of alcohol consumption? Occasional beer, social Information not available 08/16/2023 Are you currently employed? No [email or web address] Information not available 08/16/2023 Are you able to care for yourself independently? Yes Information not available 08/16/2023 What is your exercise level? None Information not available 08/16/2023 Mental Status None recorded. Family History Relationship Description Onset Age of this Age Resolved Age Notes LastModified by Organization Details LastModified Time Mother Diabetes mellitus [email or web address] Not available 08/15 10:45:20 Father Congestive heart failure [email or web address] Not available 08/15 10:45:27 Father Coronary arterioscler osis [email or web address] Not available 2023 11:24:57 Father Heart disease [email or web address] Not available 2023 11:25:26 Father Hypertensive disorder [email or web address] Not available 2023 11:25:31 Father Hypercholest erolemia [email or web address] Not available 2023 11:25:37 Sister Harmful pattern of use of alcohol [email or web address] Not available 2023 11:24:50 Medical History Condition Response Coronary Artery Disease Y High Blood Pressure Y Muscle, Joint, or Bone Problems Y High Cholesterol Y Heart Attack (PR) Y Diabetes Y Immunizations Vaccine Type Date Status Note Provider Nam e and Address Organization Details Recorded Time pneumococcal, unspecified formulation 3 completed LILIA Guerrero - [facility] 08/16/2023 10:42:47 COVID-19, mRNA, LNP-S, PF, 30 mcg/0.3 mL dose 1 completed Not Available [facility] 02/26/2025 10:13:39 COVID-19, mRNA, LNP-S, PF, 30 mcg/0.3 mL dose 1 completed Not Available [facility] 02/26/2025 10:13:39 COVID-19, mRNA, LNP-S, PF, 30 mcg/0.3 mL dose 1 completed Not Available [facility] 02/26/2025 10:13:39 Past Encounters Encounter ID Performer Location Encounter Start Date Encounter Closed Date Diagnosis/Indication Diagnosis SNOMED-CT Code Diagnosis ICD10 Code Diagnosis IMO Codes Diagnosis Note [id number] Adrián Bautista MD [facility] [place] [address] [place] [address] 08/16/2023 10:13:22 08/16/2023 11:26:38 Uncontrolled type 2 diabetes mellitus 598638886 E11.65 due for a1c and refill jardiance 25mg daily needed today. Benign ess ential hypertension 2050649 I10 boost to HCTZ 25mg daily. BP 150/80 today. continue metoprolol ER 100mg daily and lisinopril 20mg daily Hyperlipidemia 73285628 E78.5 stable on high dose statin therapy. due for fasting lipids Long-term drug therapy 767660736 Z79.899 routine labs due Coronary atherosclerosis 320837654 I25.[address] Ferrer next week for routine appt. asymptomat ic. History of placement of stent for coronary artery disease 368307565 Z95.5 2 vessels bypass hx. Gastroesop hageal reflux disease without esophagitis 671432545 K21.9 stable on PPI therapy [id number] Adrián Bautista MD [facility] [place] [address] [place] [address] 02/14/2024 09:51:38 02/14/2024 10:50:59 Body mass index 40+ - severely obese 145177232 Z68.41 BMI is 42 Obesity 875119790 E66.9 discussed healthy diet, exercise, controllin g carbohydra louie and added sugars in the diet Coronary atherosclerosis 841615773 I25.10 Heart catheteriz ation and all cardiac testing has been updated this year seeing cardiologi Benign ess ential hypertension 9949802 I10 Stable on hCTZ 25mg daily. BP 128/80 today. continue metoprolol ER 100mg daily and lisinopril 20mg daily Hyperlipidemia 97828888 E78.5 stable on high dose statin therapy. due for fasting lipids again in July Gastroesop hageal reflux disease without esophagitis 162694002 K21.9 stable on PPI therapy History of placement of stent for coronary artery disease 520658035 Z95.5 2 vessels bypass hx. Long-term drug therapy 674991195 Z79.899 Next lab panel ordered for July Well contr olled type 2 diabetes mellitus 081121551 E11.9 6.2% a1c. Repeat labs again in July with albumin urine testing that will be due Anterior rhinorrhea 2772 93348 J34.89 Trial of ipratropiu m bromide nasal spray for continual runny nose Obstructiv e sleep apnea syndrome 69593173 G47.33 Patient is using CPAP nightly and having good efficacy and rest Lumbar radiculopathy 128 059052 M54.16 Lumbar radiculopa thy continues despite therapy that was completed. We will send him for MRI lumbar spine without contrast [id number] Adrián Bautista [place] [facility] [place] [address] [place] [address] 08/21/2024 10:18:02 08/26/2024 10:10:26 Obese class III 090799676 E66.813 1301456828 BMI is 40.6 Body mass index 40+ - severely obese 624547638 Z68.41 898909 BMI is 40.6 Well contr olled type 2 diabetes mellitus 856537614 E11.9 A1c is up to 6.8%. We are going to boost Ozempic to 2 mg weekly dosing and repeat A1c labs in January Benign ess ential hypertension 8603545 I10 Stable on hCTZ 25mg daily. BP 128/80 today. continue metoprolol ER 100mg daily and lisinopril 20mg daily. Refill on hydrochlor othiazide given Coronary atherosclerosis 384451679 I25.10 Heart catheteriz ation and all cardiac testing has been updated this year seeing cardiologi st History of placement of stent for coronary artery disease 759519774 Z95.5 2 vessels bypass hx. Hyperlipidemia 86930789 E78.5 stable on high dose statin therapy. Fasting lipids ordered for January Gastroesop hageal reflux disease without esophagitis 114381249 K21.9 stable on PPI therapy Obstructiv e sleep apnea syndrome 71314798 G47.33 Patient is using CPAP nightly and having good efficacy and rest Long-term drug therapy 042510004 Z79.899 CBC BMP and liver function ordered for January Lumbar radiculopathy 128 044629 M54.16 Lumbar radiculopa thy continues despite therapy that was completed. We will send him for MRI lumbar spine without contrast Screening for malignant neoplasm of prostate 164198124 Z12.5 088252 Annual PSA will be due in January as well History of polyp of colon 574897385 Z86.0100 [id number] Patient is due for repeat colonoscop y. Orders faxed [id number] Adrián Bautista MD [facility] [place] [address] [place] [address] 02/26/2025 10:12:46 02/26/2025 11:42:25 Well controlled type 2 diabetes mellitus 867074317 E11.9 A1c is up to 6%. Current dosing is Ozempic 2 mg weekly dosing, along with glimepirid e 1 mg twice daily Januvia 100 mg daily Jardiance 25 mg daily. Next labs due in July Coronary atherosclerosis 278314087 I25.10 Heart catheteriz ation and all cardiac testing has been updated this year seeing cardiologi st History of placement of stent for coronary artery disease 166598044 Z95.5 2 vessels bypass hx. Benign ess ential hypertension 6071412 I10 Stable on hCTZ 25mg daily. BP 124/80 today. continue metoprolol ER 100mg daily and lisinopril 20mg daily. Hyperlipidemia 02235056 E78.5 stable on high dose statin therapy. Atorvastat in 80 mg daily. Repeat fasting labs in July Obstructiv e sleep apnea syndrome 45088958 G47.33 Patient is using CPAP nightly and having good efficacy and rest Lumbar radiculopathy 128 910758 M54.16 History noted no changes Gastroesop hageal reflux disease without esophagitis 385375039 K21.9 stable on PPI therapy continue omeprazole 20 mg daily Long-term drug therapy 408017636 Z79.899 Next set of labs ordered for July History of polyp of colon 888945709 Z86.0100 [id number] Colonoscop y planned for 03-08-25. Chronic ki dney disease stage 3A 638230397 N18.31 0245378983 1.48 creatinine , EGFR of 50. Stable continue excellent diabetes management hyperlipid emia management and on Jardiance therapy for renal protection Obese class III 77740765 5 E66.813 E66.3 [id number] discussed healthy diet, exercise, controllin g carbohydra louie and added sugars in the diet Platelet c ount below reference range 680203616 D69.6 75077072 Platelets noted to be 427368 on recent labs. We will follow this closely with CBC ordered in July Paroxysmal atrial fibrillation 907344129 I48.0 75389 on eliquis 5mg bid. back in a-fib. had cardiovers on in october but just recently back in a-fib Drug therapy finding 309 784109 Z79.01 [id number] Currently on Eliquis 5 mg twice daily for AFib Health Concerns Section Related Observation LastModified by Organization Detai ls LastModified Time None Recorded Concern Status LastModified by Organization Details LastModified Time None Recorded Advance Directives Directive N: Payers Insurance Date Sequence Insurance Name Policy Number Policy Baig Covered Member ID Baig Member ID Guarantor Name 02/23/2025 1 [facility] (MEDICARE REPLACEMENT/A DVANTAGE - HMO) [id number] Adrián Rodríguez [id number] Adrián Rodríguez Notes Date Note Type Note Provider Name and Address Organization Details Recorded Time 4 text/html HyperlipidemiaReported by Patientstable on atorvastatin 80mg daily. HypertensionReported by Patientstable on metoprolol ER 100mg daily, lisinopril 20mg daily, hctz 25mg daily, DiabetesReported by Patienton glimepiride, jardiance 25mg daily, januvia 100mg daily, and trulicity 3mg weekly Reflux/GERDReported by Patientstable on PPI therapy Back PainReported by PatientHPIFor location, patient reportspain radiating to the buttocksandpain radiating to the legs. For severity, patient reportsworsening. For aggravating factors, patient reportsmovement/positioning ,twisting,flexing back, andextending back. For duration, patient reportschronic. For context, patient reportsprior back problems. LEE Brewster Attn: Accounting,[address] [place], [address], [facility] 08/27/2023 23:00:28 4 text/html HyperlipidemiaReported by Patientstable on atorvastatin 80mg daily. HypertensionReported by Patientstable on metoprolol ER 100mg daily, lisinopril 20mg daily, hctz 25mg daily, DiabetesReported by Patienton glimepiride, jardiance 25mg daily, januvia 100mg daily, and trulicity 3mg weekly Reflux/GERDReported by Patientstable on PPI therapy Back PainReported by PatientHPIFor location, patient reportspain radiating to the buttocksandpain radiating to the legs. For severity, patient reportsworsening. For aggravating factors, patient reportsmovement/positioning ,twisting,flexing back, andextending back. For duration, patient reportschronic. For context, patient reportsprior back problems. LEE Brewster Attn: Accounting,[address] [place], [address], [facility] 03/01/2024 17:06:10 5 text/html HyperlipidemiaReported by Patientstable on atorvastatin 80mg daily. HypertensionReported by Patientstable on metoprolol ER 100mg daily, lisinopril 20mg daily, hctz 25mg daily, DiabetesReported by Patienton glimepiride, jardiance 25mg daily, januvia 100mg daily, and trulicity 3mg weekly Reflux/GERDReported by Patientstable on PPI therapy Back PainReported by PatientHPIFor location, patient reportspain radiating to the buttocksandpain radiating to the legs. For severity, patient reportsworsening. For aggravating factors, patient reportsmovement/positioning ,twisting,flexing back, andextending back. For duration, patient reportschronic. For context, patient reportsprior back problems. LEE Brewster Attn: Accounting,[address] [facility], [place], [address], [facility] 09/06/2024 17:41:12 5 text/html Obstructive Sleep Apnea F/UReported by PatientCPAP therapy every night adherent to regimen having benefit no complaints Atrial FibrillationReported by PatientPatient now has atrial fibrillation that is paroxysmal. He is anticoagulated with Eliquis 5 mg twice daily and following routinely with Cardiology. Back PainReported by PatientHPIFor location, patient reportspain radiating to the buttocksandpain radiating to the legs. For severity, patient reportsworsening. For aggravating factors, patient reportsmovement/positioning ,twisting,flexing back, andextending back. For duration, patient reportschronic. For context, patient reportsprior back problems. HyperlipidemiaReported by Patientstable on atorvastatin 80mg daily. Total cholesterol 90 HDL 33 LDL 43 triglycerides 132. HypertensionReported by Patientstable on metoprolol ER 100mg daily, lisinopril 20mg daily, hctz 25mg daily, DiabetesReported by Patienton glimepiride, jardiance 25mg daily, januvia 100mg daily, and trulicity 3mg weekly. Current A1c at 6% Reflux/GERDReported by Patientstable on PPI therapy, omeprazole 20 mg daily Chronic kidney disease stage 3a--levels are stable and on Jardiance which also helps with renal protection LEE Brewster Attn: Accounting,[address] [facility], [place], [address], [facility] 03/07/2025 21:58:05
--- OUTSIDE RECORDS SUMMARY | 2025-03-08 00:10 | XMS_ITS | Data Portability ---
Author Organization [place] - [facility], Main Office Address [address] [place] [address] Care Team Providers Care Vascular Ultrasound Technologist Name Role Phone RITU TURK Primary Care Provider [phone] RITU TURK Referring Provider [phone] Assessment Encounter Date Assessment Date Assessment LastModified by Organization Details LastModified Time 11/22/2022 11/22/2022 Patient presents hip pain left. He has tenderness in left hip and pain to palpation manipulation he says that it can not lay on the side is quite painful when he walks. Denies much in the way of groin pain. On exam he has got tenderness to palpation over the left hip he has got pain to manipulation. His x-rays show some mild degenerative change nothing severe. My impression patient has trochanteric pain I injected him with 10 mg Kenalog 4 cc 1% lidocaine into the trochanteric region. Treatments may particularly difficult by his morbid obesity is got a BMI over 40, stage 3 chronic kidney disease and he has diabetes all of which makes giving him prescription drug medication risky. [email or web address] Not available 11/22/2022 12:52:17 01/01/2023 01/01/2023 colonoscopy due 2024. [email or web address] Not available 01/01/2023 11:06:29 Plan of Treatment Reminders Order Date Submit Date Provider Last Modified By Organization Details Last Modified Time Details Appointments None recorded. Lab lipid panel, serum 2022 024 [email or web address] [facility], [address], [place], [address], 18:20:13 HbA1c (hemoglobin A1c), blood 2022 024 [facility], [address], [place], [address], 4 18:20:13 BMP, serum or plasma 2022 024 [email or web address] [facility], [address], [place], [address], 4 18:20:13 hepatic function panel, serum 2022 024 [email or web address] [facility], [address], [place], [address], 4 18:20:14 CBC w/ auto diff 2022 024 [facility], [address], [place], [address], 4 18:20:14 TSH + free T4, serum 2022 024 [email or web address] [facility], [address], [place], [address], 4 18:20:14 Referral None recorded. Procedures injection/a spiration joint/bursa (PROC) - in office procedure, administere d by provider 2022 023 [email or web address] In-Office Order, Internal Use Only DO Not Attach Compendium DO Not Attach Compendium, Do Not Delete/merge, [id number] 3 12:51:18 Surgeries None recorded. Imaging MRI, lumbar spine, w/o contrast 2022 023 [email or web address] 4 [facility], [address] [place], [address], 3 10:54:03 XR, lumbosacral spine, 2 or 3 view 2022 023 [facility] [address] [place], [address], 3 13:57:33 XR, hip, unilateral, 2 or 3 view 2022 023 [facility] [address] [place], [address], 3 12:51:16 Medication Orders Kenalog 10 mg/mL suspension for injection 2022 023 [email or web address] 4 [facility], [address] [place] [address], [address], 3 11:38:55 ropivacaine (PF) 5 mg/mL (0.5 %) injection solution 2022 023 [email or web address] 4 [facility], [address] [place] [address], [address], 3 11:38:59 Patient TargetsNo targets recorded. Patient InstructionsNo instructions recorded. Reason for Referral None Reported. Results Created Date Observation Date Name Description Value Unit Range Abnormal Flag Note LastModifiedBy Organization Detail LastModifiedTime 12/01/1912/01/2022 ALBUM IN, BRAYAN Pearl URINE W/CRE ATINI NE creatinine, random urine 88 mg/dL 20-320 normal Not Available [facility] [address] [address] [place], [address], 12/01/2022 14:17:11 12/01/1912/01/2022 ALBUM INBRAYAN M URINE W/CRE ATINI NE albumin, urine 2.4 mg/dL see note: normal Refer ence Range : Refer ence Range Not estab lishe d Not Available [facility] [address] [place], [address], 12/01/2022 14:17:11 12/01/19 23 12/01/2022 ALBUM IN, RANDO M URINE W/CRE ATINI NE albumin/crea tinine ratio, random urine 27 mcg/m g_cre at <30 normal The ADA defin es abnor malit ies in album in excre tion as follo ws: Album inuri a Categ ory Resul t (mcg/ mg creat inine ) Anuradha l to Mildl y incre ased <30 Moder ately incre ased 30-29 9 Sever carlitos incre ased > OR = 300 The ADA recom mends that at least two of three speci mens colle cted withi n a 3-6 month perio d be abnor mal befor e consi howie g a patie nt to be withi n a diagn ostic categ ory. Not Available [address], [address], 12/01/2022 14:17:11 12/01/1912/01/2022 TSH+F REE T4 TSH 1.89 mIU/L 0.40-4 .50 normal Not Available [address], [address], 12/01/2022 14:17:13 12/01/19 23 12/01/2022 TSH+F REE T4 T4, free 1.1 NG/dL 0.8-1. 8 normal Not Available [address], [address], 12/01/2022 14:17:13 12/01/19 23 12/01/2022 LIPID PANEL , STAND WILMER cholesterol, total 114 mg/dL <200 normal Not Available [facility] [address], [address], 12/01/2022 14:17:13 12/01/19 23 12/01/2022 LIPID PANEL , STAND WILMER HDL cholesterol 29 mg/dL > or = 40 low Not Available [facility] [address], [address], 12/01/2022 14:17:13 12/01/19 23 12/01/2022 LIPID PANEL , STAND WILMER triglyceride s 250 mg/dL <150 high If a non-f astin g speci men was colle cted, consi joan repea t trigl yceri de testi ng on a fasti ng speci men if clini joe indic ated. Vito batista et al. J. of Clin. Lipid ol. 2015; 9:129 -169. Not Available [address] [address] [place], [address], 12/01/2022 14:17:13 12/01/1912/01/2022 LIPID PANEL , STAND WILMER LDL-choleste rol 56 mg/dL _(robert c) normal Refer ence range : <100 Bill able range <100 mg/dL for prima ry preve ntion ; <70 mg/dL for patie nts with CHD or diabe tic patie nts with > or = 2 CHD risk facto rs. LDL-C is now calcu lated using the Naima n-Hop kins calcu rosa isela n, which is a valid ated novel betho d provi kortney román r accur acy than the Fried priscilla equat ion in the estim ation of LDL-C . Naima bray SS et al. SHEILA. 2013; 310(1 9): 2061- 2068 (http ://ed ucati on.Qu matthew2[employer]. com/f aq/FA Q164) Not Available [facility] [address] [address] [place], [address], 12/01/2022 14:17:13 12/01/1912/01/2022 LIPID PANEL , STAND WILMER chol/HDLC ratio 3.9 (calc ) <5.0 normal Not Available [facility] [address] [address] [place], [address], 12/01/2022 14:17:13 12/01/1912/01/2022 LIPID PANEL , STAND WILMER non HDL cholesterol 85 mg/dL _(robert c) <130 normal For patie nts with diabe louie plus 1 major ASCVD risk facto r, treat ing to a non-H DL-C goal of <100 mg/dL (LDL- C of <70 mg/dL ) is consi dered a thera peuti c optio n. Not Available [address], [address], 12/01/2022 14:17:13 12/01/1912/01/2022 BASIC METAB OLIC PANEL glucose 110 mg/dL 65-99 high Fasti ng refer ence inter hesham For someo ne witho ut known diabe louie, a gluco se value betwe en 100 and 125 mg/dL is consi stent with predi abete s and shoul d be confi rmed with a follo w-up test. Not Available [address], [address], 12/01/2022 14:17:14 12/01/1912/01/2022 BASIC METAB OLIC PANEL urea nitrogen (BUN) 38 mg/dL 7-25 high Not Available [address], [address], 12/01/2022 14:17:14 12/01/19 23 12/01/2022 BASIC METAB OLIC PANEL creatinine 1.41 mg/dL 0.70-1 .35 high Not Available [address], [address], 12/01/2022 14:17:14 12/01/19 23 12/01/2022 BASIC METAB OLIC PANEL eGFR 54 mL/mi n/1.7 3m2 > or = 60 low Not Available [address], [address], 12/01/2022 14:17:14 12/01/1912/01/2022 BASIC METAB OLIC PANEL BUN/creatini ne ratio 27 (calc ) 6-22 high Not Available [address], [address], 12/01/2022 14:17:14 12/01/19 23 12/01/2022 BASIC METAB OLIC PANEL sodium 137 mmol/ L 135-14 6 normal Not Available [address] [address] [place], [address], 12/01/2022 14:17:14 12/01/19 23 12/01/2022 BASIC METAB OLIC PANEL potassium 5.3 mmol/ L 3.5-5. 3 normal Not Available [address], [address], 12/01/2022 14:17:14 12/01/19 23 12/01/2022 BASIC METAB OLIC PANEL chloride 104 mmol/ L 98-110 normal Not Available [address], [address], 12/01/2022 14:17:14 12/01/1912/01/2022 BASIC METAB OLIC PANEL carbon dioxide 28 mmol/ L 20-32 normal Not Available [address], [address], 12/01/2022 14:17:14 12/01/19 23 12/01/2022 BASIC METAB OLIC PANEL calcium 9.6 mg/dL 8.6-10 .3 normal Not Available [address], [address], 12/01/2022 14:17:14 12/01/1912/01/2022 HEMOG LOBIN A1C WITH EAG hemoglobin A1C 5.7 %_of_ total _HGB <5.7 high For someo [...] diabe louie for child wayne. Not Available [address], [address], 12/01/2022 14:17:15 12/01/19 23 12/01/2022 HEMOG LOBIN A1C WITH EAG EAG (mg/dL) 117 mg/dL Not Available [facility] [address], [address], 12/01/2022 14:17:15 12/01/19 23 12/01/2022 HEMOG LOBIN A1C WITH EAG EAG (mmol/L) 6.5 mmol/ L Not Available [address], [address], 12/01/2022 14:17:15 12/01/19 23 12/01/2022 HEPAT IC FUNCT ION PANEL protein, total 6.7 g/dL 6.1-8. 1 normal Not Available [address], [address], 12/01/2022 14:17:16 12/01/19 23 12/01/2022 HEPAT IC FUNCT ION PANEL albumin 4.1 g/dL 3.6-5. 1 normal Not Available [address], [address], 12/01/2022 14:17:16 12/01/19 23 12/01/2022 HEPAT IC FUNCT ION PANEL globulin 2.6 g/dL_ (calc ) 1.9-3. 7 normal Not Available [address], [address], 12/01/2022 14:17:16 12/01/19 23 12/01/2022 HEPAT IC FUNCT ION PANEL albumin/glob ulin ratio 1.6 (calc ) 1.0-2. 5 normal Not Available [address] [place], [address], 12/01/2022 14:17:16 12/01/1912/01/2022 HEPAT IC FUNCT ION PANEL bilirubin, total 0.4 mg/dL 0.2-1. 2 normal Not Available [address], [address], 12/01/2022 14:17:16 12/01/1912/01/2022 HEPAT IC FUNCT ION PANEL bilirubin, direct 0.1 mg/dL < or = 0.2 normal Not Available [address], [address], 12/01/2022 14:17:16 12/01/1912/01/2022 HEPAT IC FUNCT ION PANEL bilirubin, indirect 0.3 mg/dL _(robert c) 0.2-1. 2 normal Not Available [address] [address] [place], [address], 12/01/2022 14:17:16 12/01/1912/01/2022 HEPAT IC FUNCT ION PANEL alkaline phosphatase 93 U/L 35-144 normal Not Available [address] [address] [place], [address], 12/01/2022 14:17:16 12/01/1912/01/2022 HEPAT IC FUNCT ION PANEL AST 21 U/L 10-35 normal Not Available [address] [address] [place], [address], 12/01/2022 14:17:16 12/01/1912/01/2022 HEPAT IC FUNCT ION PANEL ALT 31 U/L 9-46 normal Not Available [address] [address] [place], [address], 12/01/2022 14:17:16 12/01/1912/0112/01/2022 CBC (INCL UDES DIFF/ PLT) white blood cell count 6.1 thous and/u L 3.8-10 .8 normal Not Available [address], [address], 12/01/2022 14:17:17 12/01/19 23 12/01/2022 CBC (INCL UDES DIFF/ PLT) red blood cell count 4.72 cyndi on/uL 4.20-5 .80 normal Not Available [address], [address], 12/01/2022 14:17:17 12/01/1912/01/2022 CBC (INCL UDES DIFF/ PLT) hemoglobin 15.3 g/dL 13.2-1 7.1 normal Not Available [address], [address], 12/01/2022 14:17:17 12/01/19 23 12/01/2022 CBC (INCL UDES DIFF/ PLT) hematocrit 44.4 % 38.5-5 0.0 normal Not Available [address], [address], 12/01/2022 14:17:17 12/01/19 23 12/01/2022 CBC (INCL UDES DIFF/ PLT) MCV 94.1 fL 80.0-1 00.0 normal Not Available [address], [address], 12/01/2022 14:17:17 12/01/1912/01/2022 CBC (INCL UDES DIFF/ PLT) MCH 32.4 pg 27.0-3 3.0 normal Not Available [address], [address], 12/01/2022 14:17:17 12/01/1912/01/2022 CBC (INCL UDES DIFF/ PLT) MCHC 34.5 g/dL 32.0-3 6.0 normal Not Available [address], [address], 12/01/2022 14:17:17 12/01/1912/01/2022 CBC (INCL UDES DIFF/ PLT) RDW 13.0 % 11.0-1 5.0 normal Not Available [address], [address], 12/01/2022 14:17:17 12/01/1912/01/2022 CBC (INCL UDES DIFF/ PLT) platelet count 141 thous and/u L 140-40 0 normal Not Available [address], [address], 12/01/2022 14:17:17 12/01/1912/01/2022 CBC (INCL UDES DIFF/ PLT) MPV 11.2 fL 7.5-12 .5 normal Not Available [address], [address], 12/01/2022 14:17:17 12/01/1912/01/2022 CBC (INCL UDES DIFF/ PLT) absolute neutrophils 3599 cells /uL 1500-7 800 normal Not Available [address], [address], 12/01/2022 14:17:17 12/01/1912/01/2022 CBC (INCL UDES DIFF/ PLT) absolute lymphocytes 1580 cells /uL 850-39 00 normal Not Available [address], [address], 12/01/2022 14:17:17 12/01/1912/01/2022 CBC (INCL UDES DIFF/ PLT) absolute monocytes 641 cells /uL 200-95 0 normal Not Available [address], [address], 12/01/2022 14:17:17 12/01/19 23 12/01/2022 CBC (INCL UDES DIFF/ PLT) absolute eosinophils 262 cells /uL 15-500 normal Not Available [facility] [address], [address], 12/01/2022 14:17:17 12/01/19 23 12/01/2022 CBC (INCL UDES DIFF/ PLT) absolute basophils 18 cells /uL 0-200 normal Not Available [facility] [address], [address], 12/01/2022 14:17:17 12/01/19 23 12/01/2022 CBC (INCL UDES DIFF/ PLT) neutrophils 59 % normal Not Available [facility] [address], [address], 12/01/2022 14:17:17 12/01/19 23 12/01/2022 CBC (INCL UDES DIFF/ PLT) lymphocytes 25.9 % normal Not Available [facility] [address], [address], 12/01/2022 14:17:17 12/01/19 23 12/01/2022 CBC (INCL UDES DIFF/ PLT) monocytes 10.5 % normal Not Available [facility] [address], [address], 12/01/2022 14:17:17 12/01/19 23 12/01/2022 CBC (INCL UDES DIFF/ PLT) eosinophils 4.3 % normal Not Available [facility] [address], [address], 12/01/2022 14:17:17 12/01/19 23 12/01/2022 CBC (INCL UDES DIFF/ PLT) basophils 0.3 % normal Not Available [facility] [address], [address], 12/01/2022 14:17:17 12/01/19 23 12/01/2022 PSA, TOTAL PSA, total 1.78 NG/mL < [...] This test was perfo rmed using the [employer] chemi lumin escen t metho d. Value s obtai valeriano from diffe rent assay metho ds canno t be used inter walter eably . PSA level s, regar dless of value , shoul d not be inter prete d as absol rampart evide nce of the prese nce or absen ce of disea se. Not Available [facility] [address], [address], 12/01/2022 14:17:17 02/04/20 24 02/04/2024 TSH+F REE T4 TSH 1.90 mIU/L 0.40-4 .50 normal Not Available [facility] [address], [address], 02/05/2024 00:06:24 02/04/20 24 02/04/2024 TSH+F REE T4 T4, free 1.2 NG/dL 0.8-1. 8 normal Not Available [facility] [address], [address], 02/05/2024 00:06:24 02/04/20 24 02/04/2024 LIPID PANEL , STAND WILMER cholesterol, total 131 mg/dL <200 normal Not Available [facility] [address], [address], 02/05/2024 00:06:25 02/04/20 24 02/04/2024 LIPID PANEL , STAND WILMER HDL cholesterol 33 mg/dL > or = 40 low Not Available [address] [address] [address], [place], [address], 02/05/2024 00:06:25 02/04/20 24 02/04/2024 LIPID PANEL , STAND WILMER triglyceride s 164 mg/dL <150 high Not Available [facility] [address] [address] [place], [address], 02/05/2024 00:06:25 02/04/20 24 02/04/2024 LIPID PANEL , STAND WILMER LDL-choleste rol 74 mg/dL _(robert c) normal Refer ence range : <100 Bill able range <100 mg/dL for prima ry preve ntion ; <70 mg/dL for patie nts with CHD or diabe tic patie nts with > or = 2 CHD risk facto rs. LDL-C is now calcu lated using the Naima n-Hop kins calcu rosa isela n, which is a valid ated novel mahesh covingtonte r accur acy than the Fried priscilla equat ion in the estim ation of LDL-C . Naima bray SS et al. SHEILA. 2013; 310(1 9): 2061- 2068 (http ://ed ucati on.[employer] Blanquita 1000jobboersen.de. [employer]/f aq/FA Q164) Not Available [address] [address] [address], [place], [address], 02/05/2024 00:06:25 02/04/20 24 02/04/2024 LIPID PANEL , STAND WILMER chol/HDLC ratio 4.0 (calc ) <5.0 normal Not Available [facility] [address] [address] , [place], [address], 02/05/2024 00:06:25 02/04/20 24 02/04/2024 LIPID PANEL , STAND WILMER non HDL cholesterol 98 mg/dL _(robert c) <130 normal For patie nts with diabe louie plus 1 major ASCVD risk facto r, treat ing to a non-H DL-C goal of <100 mg/dL (LDL- C of <70 mg/dL ) is consi dered a thera peuti c optio n. Not Available [address], [address], 02/05/2024 00:06:25 02/04/20 24 02/04/2024 BASIC METAB OLIC PANEL glucose 126 mg/dL 65-99 high Fasti ng refer ence inter hesham For someo ne witho ut known diabe louie, a gluco se value >125 mg/dL indic ates that they may have diabe louie and this shoul d be confi rmed with a follo w-up test. Not Available [address], [address], 02/05/2024 00:06:26 02/04/2002/04/2024 BASIC METAB OLIC PANEL urea nitrogen (BUN) 33 mg/dL 7-25 high Not Available [address], [address], 02/05/2024 00:06:26 02/04/20 24 02/04/2024 BASIC METAB OLIC PANEL creatinine 1.54 mg/dL 0.70-1 .28 high Not Available [address], [address], 02/05/2024 00:06:26 02/04/20 24 02/04/2024 BASIC METAB OLIC PANEL eGFR 48 mL/mi n/1.7 3m2 > or = 60 low Not Available [address], [address], 02/05/2024 00:06:26 02/04/20 24 02/04/2024 BASIC METAB OLIC PANEL BUN/creatini ne ratio 21 (calc ) 6-22 normal Not Available [address], [address], 02/05/2024 00:06:26 02/04/20 24 02/04/2024 BASIC METAB OLIC PANEL sodium 138 mmol/ L 135-14 6 normal Not Available [address], [address], 02/05/2024 00:06:26 02/04/20 24 02/04/2024 BASIC METAB OLIC PANEL potassium 5.5 mmol/ L 3.5-5. 3 high Not Available [address], [address], 02/05/2024 00:06:26 02/04/20 24 02/04/2024 BASIC METAB OLIC PANEL chloride 103 mmol/ L 98-110 normal Not Available [address], [address], 02/05/2024 00:06:26 02/04/20 24 02/04/2024 BASIC METAB OLIC PANEL carbon dioxide 30 mmol/ L 20-32 normal Not Available [address], [address], 02/05/2024 00:06:26 02/04/20 24 02/04/2024 BASIC METAB OLIC PANEL calcium 10.1 mg/dL 8.6-10 .3 normal Not Available [address], [address], 02/05/2024 00:06:26 02/04/20 24 02/04/2024 HEMOG LOBIN A1C WITH EAG hemoglobin A1C 6.2 %_of_ total _HGB <5.7 high For someo [...] diabe louie for child wayne. Not Available [address], [address], 02/05/2024 00:06:27 02/04/20 24 02/04/2024 HEMOG LOBIN A1C WITH EAG EAG (mg/dL) 131 mg/dL Not Available [facility] [address], [address], 02/05/2024 00:06:27 02/04/20 24 02/04/2024 HEMOG LOBIN A1C WITH EAG EAG (mmol/L) 7.3 mmol/ L Not Available [address], [address], 02/05/2024 00:06:27 02/04/20 24 02/04/2024 HEPAT IC FUNCT ION PANEL protein, total 6.8 g/dL 6.1-8. 1 normal Not Available [address], [address], 02/05/2024 00:06:28 02/04/20 24 02/04/2024 HEPAT IC FUNCT ION PANEL albumin 4.2 g/dL 3.6-5. 1 normal Not Available [address], [address], 02/05/2024 00:06:28 02/04/20 24 02/04/2024 HEPAT IC FUNCT ION PANEL globulin 2.6 g/dL_ (calc ) 1.9-3. 7 normal Not Available [address], [address], 02/05/2024 00:06:28 02/04/20 24 02/04/2024 HEPAT IC FUNCT ION PANEL albumin/glob ulin ratio 1.6 (calc ) 1.0-2. 5 normal Not Available [address] [address] [place], [address], 02/05/2024 00:06:28 02/04/20 24 02/04/2024 HEPAT IC FUNCT ION PANEL bilirubin, total 0.7 mg/dL 0.2-1. 2 normal Not Available [address] [address] [place], [address], 02/05/2024 00:06:28 02/04/20 24 02/04/2024 HEPAT IC FUNCT ION PANEL bilirubin, direct 0.2 mg/dL < or = 0.2 normal Not Available [address] [address] [place], [address], 02/05/2024 00:06:28 02/04/20 24 02/04/2024 HEPAT IC FUNCT ION PANEL bilirubin, indirect 0.5 mg/dL _(robert c) 0.2-1. 2 normal Not Available [address] [address] [place], [address], 02/05/2024 00:06:28 02/04/20 24 02/04/2024 HEPAT IC FUNCT ION PANEL alkaline phosphatase 79 U/L 35-144 normal Not Available [facility] [address] [address] [place], [address], 02/05/2024 00:06:28 02/04/20 24 02/04/2024 HEPAT IC FUNCT ION PANEL AST 24 U/L 10-35 normal Not Available [address] [address] [place], [address], 02/05/2024 00:06:28 02/04/20 24 02/04/2024 HEPAT IC FUNCT ION PANEL ALT 32 U/L 9-46 normal Not Available [address] [address] [place], [address], 02/05/2024 00:06:28 02/04/20 24 02/04/2024 CBC (INCL UDES DIFF/ PLT) white blood cell count 6.3 thous and/u L 3.8-10 .8 normal Not Available [address], [address], 02/05/2024 00:06:29 02/04/20 24 02/04/2024 CBC (INCL UDES DIFF/ PLT) red blood cell count 4.96 cyndi on/uL 4.20-5 .80 normal Not Available [address], [address], 02/05/2024 00:06:29 02/04/2002/04/2024 CBC (INCL UDES DIFF/ PLT) hemoglobin 15.6 g/dL 13.2-1 7.1 normal Not Available [address], [address], 02/05/2024 00:06:29 02/04/20 24 02/04/2024 CBC (INCL UDES DIFF/ PLT) hematocrit 48.7 % 38.5-5 0.0 normal Not Available [address], [address], 02/05/2024 00:06:29 02/04/20 24 02/04/2024 CBC (INCL UDES DIFF/ PLT) MCV 98.2 fL 80.0-1 00.0 normal Not Available [address], [address], 02/05/2024 00:06:29 02/04/20 24 02/04/2024 CBC (INCL UDES DIFF/ PLT) MCH 31.5 pg 27.0-3 3.0 normal Not Available [address], [address], 02/05/2024 00:06:29 02/04/20 24 02/04/2024 CBC (INCL UDES DIFF/ PLT) MCHC 32.0 g/dL 32.0-3 6.0 normal For adult s, a sligh t decre ase in the calcu lated MCHC value (in the range of 30 to 32 g/dL) is most likel y not clini joe jaredi torrey t; stefania er, it shoul d be inter prete d with cauti on in corre [facility] n with other red cell keon eters and the patie nt's clini robert condi tion. Not Available [facility] [address], [address], 02/05/2024 00:06:29 02/04/20 24 02/04/2024 CBC (INCL UDES DIFF/ PLT) RDW 13.2 % 11.0-1 5.0 normal Not Available [facility] [address], [address], 02/05/2024 00:06:29 02/04/20 24 02/04/2024 CBC (INCL UDES DIFF/ PLT) platelet count 141 thous and/u L 140-40 0 normal Not Available [facility] [address], [address], 02/05/2024 00:06:29 02/04/20 24 02/04/2024 CBC (INCL UDES DIFF/ PLT) MPV 11.2 fL 7.5-12 .5 normal Not Available [facility] [address], [address], 02/05/2024 00:06:29 02/04/20 24 02/04/2024 CBC (INCL UDES DIFF/ PLT) absolute neutrophils 3301 cells /uL 1500-7 800 normal Not Available [facility] [address], [address], 02/05/2024 00:06:29 02/04/20 24 02/04/2024 CBC (INCL UDES DIFF/ PLT) absolute lymphocytes 1871 cells /uL 850-39 00 normal Not Available [facility] [address], [address], 02/05/2024 00:06:29 02/04/20 24 02/04/2024 CBC (INCL UDES DIFF/ PLT) absolute monocytes 788 cells /uL 200-95 0 normal Not Available [address], [address], 02/05/2024 00:06:29 02/04/20 24 02/04/2024 CBC (INCL UDES DIFF/ PLT) absolute eosinophils 321 cells /uL 15-500 normal Not Available [address], [address], 02/05/2024 00:06:29 02/04/20 24 02/04/2024 CBC (INCL UDES DIFF/ PLT) absolute basophils 19 cells /uL 0-200 normal Not Available [address], [address], 02/05/2024 00:06:29 02/04/20 24 02/04/2024 CBC (INCL UDES DIFF/ PLT) neutrophils 52.4 % normal Not Available [employer] [address], [address], 02/05/2024 00:06:29 02/04/20 24 02/04/2024 CBC (INCL UDES DIFF/ PLT) lymphocytes 29.7 % normal Not Available [address], [address], 02/05/2024 00:06:29 02/04/20 24 02/04/2024 CBC (INCL UDES DIFF/ PLT) monocytes 12.5 % normal Not Available [address], [address], 02/05/2024 00:06:29 02/04/20 24 02/04/2024 CBC (INCL UDES DIFF/ PLT) eosinophils 5.1 % normal Not Available [address], [address], 02/05/2024 00:06:29 02/04/20 24 02/04/2024 CBC (INCL UDES DIFF/ PLT) basophils 0.3 % normal Not Available [facility] [address] [place], [address], 02/05/2024 00:06:29 11/02/19 23 11/01/2022 XR, hip, unila teral , 2 or 3 view No observ ation record ed. [address] ([employer]) [address] [place], [address], 11/12/2022 10:53:33 11/02/19 23 11/01/2022 XR, lumbo sacra l spine , 2 or 3 view No observ ation record ed. [address] ([employer]) [address] [place], [address], 11/12/2022 10:53:34 Result Notes None recorded. Problems Name Problem SNOMED Code Status Onset Date Resolution Date Notes Provider Name and Address Organization Details Recorded Time Benign essential hypertensi on 9237580 Active 2018 Not Available [facility] 3 13:03:31 Mixed hyperlipid emia 675005354 Active 2018 Not Available [facility] 3 13:03:31 Type 2 diabetes mellitus 65293401 Active 2018 Not Available [facility] 3 13:03:31 Coronary atheroscle rosis [id number] Active 2018 Not Available [facility] 3 13:03:31 Gastroesop hageal reflux disease 660827270 Active 2020 Not Available [facility] 3 13:03:31 Chronic kidney disease stage 3 172835455 Active 2020 Not Available [facility] 3 13:03:31 Obstructiv e sleep apnea syndrome 16329706 Active 2021 Not Available [facility] 3 13:03:32 Renewal of prescripti on Active 2021 Not Available [facility] 3 13:03:31 Gastroesop hageal reflux disease without esophagiti s 235799511 Active 2021 Not Available [facility] 3 13:03:31 Long-term drug therapy Active 2021 Not Available [facility] 3 13:03:31 Seasonal allergic rhinitis 257728040 Active 2021 Not Available [facility] 3 13:03:31 Diabetic peripheral neuropathy 559478775 Active 2021 Not Available [facility] 3 13:03:31 Uncontroll ed type 2 diabetes mellitus 783515457 Active 2021 Not Available [facility] 3 13:03:31 Screening for malignant neoplasm of prostate Active 2021 Not Available [facility] 3 13:03:32 Acquired trigger finger of left index finger 1842187210202 04 Active 2021 Not Available [facility] 3 13:03:31 Well controlled type 2 diabetes mellitus 437729285 Active 2021 Not Available [facility] 3 13:03:31 Paresthesi a of bilateral hands 437272131 Active 2021 Not Available [facility] 3 13:03:32 Serum creatinine above reference range 525058197 Active 2021 Not Available [facility] 3 13:03:31 Bilateral carpal tunnel syndrome 0589291910071 9101 Active 2021 Not Available [facility] 3 13:03:31 Pain of bilateral hands 8034416955243 9109 Active 2021 Not Available [facility] 3 13:03:31 Ulnar nerve entrapment at elbow 826205374 Active 2022 Not Available [facility] 3 13:03:31 Trigger finger of left hand 8677751696365 9107 Active 2022 Not Available [facility] 3 13:03:31 Multiple skin tags 060932016 Active 2022 Not Available [facility] 3 13:03:31 Carpal tunnel syndrome of left wrist 0268713954543 02 Active 2022 Not Available [facility] 3 13:03:31 Trigger finger of right hand 7465278386856 9101 Active 2022 Not Available [facility] 3 13:03:31 Seasonal allergy 144986163 Active 2022 Not Available [facility] 3 13:03:31 Pain of left hip joint 9146718791521 00 Active 2022 Not Available [facility] 3 13:03:31 Lumbar radiculopa thy 501309880 Active 2022 Not Available [facility] 3 13:03:31 Osteoarthr itis of left hip joint 5874790484547 08 Active 2022 Not Available [facility] 3 13:03:31 Degenerati on of lumbosacra l interverte bral disc 79091604 Active 2022 Not Available [facility] 3 13:03:32 Trochanter ic bursitis of left hip 8825854520641 03 Active 2022 Not Available [facility] 3 13:03:31 Problem Notes None recorded. Procedures Surgical History Date Name Laterality Status Provider Name and Address Organization Details Recorded Time 11/23/19 Ortho - Cortisone Injection completed Jonel Ayala MD [address] [place] [address], [address], [address], [facility] 11/22/2022 12:49:39 03/07/20 Carpal tunnel surgery completed VINNY Martin [facility] 10/31/2022 11:55:05 05/06/19 20 Colonoscopy completed Not [facility] 06/28/19 06:00:07 04/29/19 03 Cabg vein three completed Not Available [facility] 0304/2022 06:00:07 Orthopedic Surgery completed Not [facility] 06/27/2022 06:00:07 Knee arthroscopy/karla be completed Not Available [facility] 06/27/2022 06:00:07 Imaging Results None recorded. Procedure Notes None recorded. Medical Equipment None Reported. Allergies Allergen ID Allergen Name Allergen Category Reaction Reaction Severity Criticality Documentation Date Start Date Code Code System Note Provider Name and Address Organization Details Recorded Time 14130 Product containin g penicilli n (product) medicatio n hives Not available Not available 06/27/2022 08448 8001 SNOMED Not Available Count includes the [facility] 3 06:19:31 49163 Lasix medicatio n hives Not available Not available 06/27/202209750 1 RxNorm Not Available Count includes the [facility] 3 06:19:32 Medications Name Sig Start Date Stop Date Status Note LastModified by Organization Details LastModified Time amoxicillin 500 mg capsule TAKE 4 CAPSULES BY MOUTH 1 HOUR PRIOR TO APPOINTME NT 01/13 completed Not Available Not Available Not Available atorvastati n 40 mg tablet Take 1 tablet every day by oral route. 07/15 completed Not Available Not Available Not Available hydrocodone 7.5 mg-ibuprofe n 200 mg tablet 09/09 completed Not Available Not Available Not Available atorvastati n 80 mg tablet TAKE 1 TABLET BY MOUTH DAILY active Not Available Not Available No t Available niacin ER 1,000 mg tablet,exte nded release 24 hr Take 1 tablet every day by oral route. 09/03 completed Not Available Not Available Not Available clindamycin HCl 300 mg capsule Take 1 capsule every 6 hours by oral route. active Not Available Not Available No t Available azithromyci n 250 mg tablet TAKE 2 TABLETS BY MOUTH TODAY, THEN TAKE 1 TABLET DAILY FOR 4 DAYS active Not Available Not Available No t Available hydrocodone 5 mg-acetamin ophen 325 mg tablet TK 1 T PO Q 4 TO 6 H PRN P active Not Available Not Available No t Available lisinopril 20 mg tablet TAKE 1 TABLET BY MOUTH TWICE DAILY active Not Available Not Available No t Available metoprolol succinate ER 100 mg tablet,exte nded release 24 hr TAKE 1 TABLET BY MOUTH DAILY active Not Available Not Available No t Available clindamycin HCl 150 mg capsule active Not Available Not Available Not Available Madelyn Low Dose Aspirin 81 mg tablet,naya yed release Take 1 tablet every day by oral route. 2016 active Not Available Not Available Not Avai lable penicillin V potassium 500 mg tablet TAKE 1 TABLET BY MOUTH 4 TIMES A DAY UNTIL GONE 11/24 completed Not Available Not Available Not Available metronidazo le 500 mg tablet 01/15 completed Not Available Not Available Not Available glimepiride 1 mg tablet TAKE 1 TABLET BY MOUTH TWICE DAILY WITH MEALS active Not Available Not Available No t Available amoxicillin 875 mg tablet 06/07 completed Not Available Not Available Not Available omeprazole 10 mg capsule,del ayed release Take 1 capsule every day by oral route. 2021 active Not Available Not Available Not Avai lable Silvadene 1 % topical cream APPLY small amount to leg AREA BY [facility] [place] 2 TIMES PER DAY 03/04 completed Not Available Not Available Not Available Kenalog 10 mg/mL suspension for injection Take 20 mg by injection route. 12/28 completed [facility]: 0003- 0494- 20 Not Available Not Available Not Available doxycycline monohydrate 100 mg capsule TAKE 1 CAPSULE BY MOUTH TWICE DAILY WITH FOOD FOR 7 DAYS 12/28 completed Not Available Not Available Not Available hydrocodone 7.5 mg-acetamin ophen 325 mg tablet TAKE 1 TABLET BY MOUTH EVERY 6 HOURS NEEDED FOR PAIN 06/14 completed Not Available Not Available Not Available Gentle Laxative (bisacodyl) 5 mg tablet,naya yed release 12/23 completed Not Available Not Available Not Available hydrochloro thiazide 12.5 mg capsule Take 1 capsule every day by oral route. 01/01 completed Not Available Not Available Not Available lansoprazol e 15 mg capsule,del ayed release Take 1 capsule every day by oral route. 02/14 completed Not Available Not Available Not Available nitroglycer in 0.4 mg sublingual tablet take 1 tab SL at onset of chest pain, may repeat in 15 min if needed active Not Available Not Available No t Available montelukast 10 mg tablet TAKE 1 TABLET BY MOUTH EVERY DAY active Not Available Not Available No t Available hydrochloro thiazide 25 mg tablet Take 0.5 tablets every day by oral route for 90 days. 10/19 completed Not Available Not Available Not Available cefuroxime axetil 500 mg tablet Take 1 tablet every 12 hours by oral route. active Not Available Not Available No t Available levofloxaci n 750 mg tablet Take 1 tablet every day by oral route. active Not Available Not Available No t Available BD Ultra-Fine Mini Pen Needle 31 gauge x /16 USE DIRECTED DAILY active Not Available Not Available No t Available Fish Oil take 3 at night 2016 active Not Available Not Available Not Avai lable Aspir-81 11/24 completed Not Available Not Available Not Available hydrochloro thiazide 1 25mg daily 11/24 completed Not Available Not Available Not Available Sudafed 2 qd prn 05/27 completed Not Available Not Available Not Available multivitami n 2021 active Not Available Not Available Not Avai lable Januvia 100 mg tablet TAKE 1 TABLET BY MOUTH EVERY DAY active Not Available Not Available No t Available hydrochloro thiazide 12.5 mg tablet TAKE 1 TABLET BY MOUTH EVERY DAY active Not Available Not Available No t Available Xyzal 5 mg tablet Take 1 tablet every day by oral route. 09/09 completed Not Available Not Available Not Available GaviLyte-G 236 gram-22.74 gram-6.74 gram-5.86 gram oral solution 12/23 completed Not Available Not Available Not Available Onglyza 5 mg tablet Take 1 tablet every day by oral route. 03/04 completed Not Available Not Available Not Available ropivacaine (PF) 5 mg/mL (0.5 %) injection solution Take 20 mg by injection route. 12/28 completed [facility] [phone] -[phone] 01 Not Available Not Available Not Available Victoza 3-Sammy 0.6 mg/0.1 mL (18 mg/3 mL) subcutaneou s pen injector INJECT 1.8 MG SQ daily active Not Available Not Available No t Available Farxiga 10 mg tablet TAKE 1 TABLET BY MOUTH EVERY DAY 06/08 completed Not Available Not Available Not Available Farxiga 5 mg tablet Take 1 tablet every day by oral route. 10/14 completed Not Available Not Available Not Available Jardiance 25 mg tablet TAKE 1 TABLET DAILY active Not Available Not Available No t Available Trulicity 1.5 mg/0.5 mL subcutaneou s pen injector 11/25 completed Not Available Not Available Not Available 24Hour Allergy 10 mg tablet Take 1 tablet every day by oral route. 2020 active Not Available Not Available Not Avai lable Trulicity 3 mg/0.5 mL subcutaneou s pen injector INJECT 3 MG UNDER THE SKIN ONCE A WEEK 2023 active Not Available Not Available Not Avai lable Vitals Date Recorded Body height Body mass index (BMI) Body weight Provider Name and Address Organization Details Last Updated DateTime 07/10/2022 180.34 cm 41.8 kg/m2 967871.71 g Nela Sae [facility] [employer] [facility] 07/10/2022 11:05:30 Date Recorded Body height Body mass index (BMI) Body weight Pain severity - 0-10 verbal numeric rating [Score] - Reported Provider Name and Address Organization Details Last Updated DateTime 09/18/2022 180.34 cm 41.1 kg/m2 141241.75 g 0 Lorraine Mark [facility] [employer] [facility] [employer] [facility] 09/18/2022 10:50:00 Date Recorded Body height Body temperature Body mass index (BMI) Body weight Respiratory rate Oxygen saturation Oxygen saturation in Arterial blood by Pulse oximetry Heart rate Systolic And Diastolic Provider Name and Address Organization Details Last Updated DateTime 180.34 cm 97.7 [degF] 41.1 kg/m2 177192. 95 g 16 /min 98 % 98 % 83 /min 120/68 mm[Hg] Ibis Toney [facility] [employer] [facility] 11:55:50 Date Recorded Body height Body mass index (BMI) Body weight Provider Name and Address Organization Details Last Updated DateTime 11/22/2022 180.34 cm 41.1 kg/m2 613151.75 g Taya Erickson [place] [employer] [facility] [employer] 11/22/2022 12:38:07 Date Recorded Systolic And Diastolic Provider Name and Address Organization Details Last Updated DateTime 01/01/2023 110/80 mm[Hg] LEE Brewster [address] [facility], [facility] [address], [place], [address], [place] [employer] [facility] [employer] 01/01/2023 11:07:14 Date Recorded Body height Body temperature Body mass index (BMI) Body weight Respiratory rate Oxygen saturation Oxygen saturation in Arterial blood by Pulse oximetry Heart rate Systolic And Diastolic Provider Name and Address Organization Details Last Updated DateTime 3 180.34 cm 97.4 [degF] 38.4 kg/m2 329399. 9 g 16 /min 96 % 96 % 78 /min 118/70 mm[Hg] VINNY Martin [place] [facility] [place] [employer] [facility] 3 10:47:07 Social History Question Answer Notes LastModified by Organizat ion Details LastModified Time Tobacco Smoking Status Former Smoker Not Available [facility] 06/27/2022 05:56:22 Do You Have An Advance Directive? No [id number] Information not available 06/27/2022 What Is Your Level Of Caffeine Consumption? Heavy MIGRATION.[id number] 026 Information not available 06/27/2022 In The 14 Days Before Symptom Onset, Have You Had Close Contact With A Laboratory-confirm ed COVID-19 While That Case Was Ill? No MIGRATION.[id number] 026 Information not available 06/27/2022 In The 14 Days Before Symptom Onset, Have You Had Close Contact With A Person Who Is Under Investigation For COVID-19 While That Person Was Ill? No MIGRATION.[id number] 026 Information not available 06/27/2022 What Type Of Diet Are You Following? REGULAR MIGRATION.1136419 026 Information not available 06/27/2022 Have There Been Any Changes To Your Family Or Social Situation? No MIGRATION.[id number] 026 Information not available 06/27/2022 When Did You Quit Smoking? 6-10yearssin celastcigare tte MIGRATION.9090300 026 Information not available 06/27/2022 Do You Use Insect Repellent Routinely? No MIGRATION.3803522 026 Information not available 06/27/2022 Do You Have A Medical Power Of Priming Machine Operator? No MIGRATION.9729865 026 Information not available 06/27/2022 Have You Ever Been Counseled For Unhealthy Alcohol Use? No MIGRATION.4222799 026 Information not available 06/27/2022 What Is Your Relationship Status? MIGRATION.4997833 026 Information not available 06/27/2022 Do You Use Your Seat Belt Or Car Seat Routinely? Yes MIGRATION.2655511 026 Information not available 06/27/2022 Do You Have Smoke And Carbon Monoxide Detectors In Your Home? Yes MIGRATION.7233570 026 Information not available 06/27/2022 At What Age Did You Start Smoking Tobacco? 13 MIGRATION.6976875 026 Information not available 06/27/2022 Do You Use Sunscreen Routinely? Yes MIGRATION.5404510 026 Information not available 06/27/2022 Has Tobacco Cessation Counseling Been Provided? No MIGRATION.5476656 026 Information not available 06/27/2022 How Many Years Have You Smoked Tobacco? 46 MIGRATION.3301596 026 Information not available 06/27/2022 Have You Recently Traveled Abroad? No MIGRATION.1551362 026 Information not available 06/27/2022 Do You Have Any Dietary Restrictions? No MIGRATION.4760867 026 Information not available 06/27/2022 Sex: Unknown Functional Status Question Answer Note LastModified by Organizat ion Details LastModified Time Do you use any illicit or recreational drugs? No MIGRATION.2166353 026 Information not available 06/27/2022 Do you or have you ever used any other forms of tobacco or nicotine? No MIGRATION.5761728 026 Information not available 06/27/2022 What is your level of alcohol consumption? Occasional MIGRATION.9919121 026 Information not available 06/27/2022 Are you currently employed? No [email or web address] Information not available 10/26/2022 Do you have transportation difficulties? No MIGRATION.9266128 026 Information not available 06/27/2022 Are you able to walk independently without assistance or assistive devices? YESWOREST MIGRATION.6420415 026 Information not available 06/27/2022 Do you have difficulty doing errands alone? No MIGRATION.7526682 026 Information not available 06/27/2022 Are you able to care for yourself independently? Yes MIGRATION.1612625 026 Information not available 06/27/2022 What is your occupation? Retired MIGRATION.9980337 026 Information not available 06/27/2022 Do you have difficulty dressing, bathing, grooming, or toileting? No [email or web address] Information not available 12/28/2022 What is your exercise level? Moderate MIGRATION.1382172 026 Information not available 06/27/2022 Mental Status None recorded. Family History Relationship Description Onset Age of this Age Resolved Age Notes LastModified by Organization Details LastModified Time Mother Diabetes mellitus [id number].323 [id number] Not available 06/27/2022 06:00:08 Father Congestive heart failure MIGRATION.147 [id number] Not available 06/27/2022 06:00:08 Medical History Condition Response EYE PROBLEMS Y HEART DISEASE/HEART PROBLEMS Y DIABETES, TYPE Y OBESITY Y CORONARY ARTERY DISEASE (CAD) Y HYPERTENSION Y HIGH CHOLESTEROL / HYPERLIPIDEMIA Y Immunizations Vaccine Type Date Status Note Provider Nam e and Address Organization Details Recorded Time pneumococcal, unspecified formulation 3 completed Not Available [facility] includes the [facility] 03/11/2023 13:03:32 tetanus toxoid, unspecified formulation 3 completed Not Available Count includes the [facility] 03/11/2023 13:03:32 Past Encounters Encounter ID Performer Location Encounter Start Date Encounter Closed Date Diagnosis/Indication Diagnosis SNOMED-CT Code Diagnosis ICD10 Code Diagnosis IMO Codes Diagnosis Note [id number] LEE Brewster [facility] [place] [address] [place] [address] 11/25/2020 00:00:00 11/25/2020 13:45:[id number] [facility] [place] [address] [place] [address] 06/08/2021 00:00:00 06/26/2021 17:41:41 [id number] Adrián Bautista MD [facility] [place] [address] [place] [address] 10/19/2021 00:00:00 10/22/2021 21:23:45 [id number] Rose [address] [facility] [place] [address] [place] [address] 01/30/2022 00:00:00 01/30/2022 13:04:[id number] [facility] [place] [address] [place] [address] 02/15/2022 00:00:00 02/24/2022 18:18:39 [id number] Rose [address] [facility] [place] [address] [place] [address] 03/20/2022 00:00:00 03/20/2022 12:22:48 [id number] Rose MD [facility] [place] [address] [place] [address] 05/22/2022 00:00:00 05/22/2022 11:02:[id number] [facility] [place] [address] [place] [address] 06/14/2022 00:00:00 06/24/2022 21:46:24 [id number] Rose [address] [facility] [place] [address] [place] [address] 07/10/2022 11:02:05 07/10/2022 11:32:27 Bilateral carpal tunnel syndrome 1827372534 0040128 G56.02 remove sutures work on nerve and tendon glides and strengthen ing I will see him back in a few months for follow-up appropriat e wound care discussed Ulnar nerv e entrapment at elbow 800451819 G56.21 Trigger fi nger of left hand 8448260552 5279851 M65.322 [id number] Rose [address] [facility] [place] [address] [place] [address] 09/18/2022 10:48:14 09/18/2022 11:10:35 Carpal tunnel syndrome of left wrist 1365602240 89845 G56.02 patient will continue with desensitiz ing and strengthen ing as tolerated now he can also continue doing light touch as well as hot and cold contrast to help with the nerve regenerati on and will see him back only if any problems now Ulnar nerv e entrapment at elbow 908868364 G56.21 continue with nerve glides and strengthen ing of the hand as tolerated [id number] LEE Brewster [facility] [place] [address] [place] [address] 10/31/2022 11:47:01 10/31/2022 12:14:01 Pain of left hip joint 9714204623 51410 M25.552 check xray hip. Lumbar radiculopathy 128 459515 M54.16 check xray lumbosacra l spine and then proceed with MRI to evaluate disc spacing and assess for disc herniation , impingemen t, stenosis. Will need for pain management and or pre-neuros urgery appt [id number] Jonel Ayala MD [facility] [place] [address] [place] [address] 11/22/2022 12:34:47 11/22/2022 12:59:59 Pain of left hip joint 1165998124 05883 M25.552 Trochanter ic bursitis of left hip 3099104717 76925 M70.62 [id number] LEE Brewster [facility] [place] [address] [place] [address] 01/01/2023 10:25:11 01/01/2023 11:14:42 Adult health examination 110789989 Z00.01 well exam completed. labs are UTD Coronary atherosclerosis 950954546 I25.10 stable on statin therapy and UTD on routine cardiology appts Well contr olled type 2 diabetes mellitus 378225378 E11.9 A1c great range. on amaryl, januvia, jardiance, and trulicity Benign ess ential hypertension 7613786 I10 stable on medication s Chronic ki dney disease stage 3 674486957 N18.30 1.41 range creatinine . following bmp. Gastroesop hageal reflux disease 919662588 K21.9 stable on PPI therapy Mixed hyperlipidemia 267 852891 E78.2 stable labs on atorvastat in 80mg daily. repeat in may. Obstructiv e sleep apnea syndrome 33850803 G47.33 stable on cpap nightly. Degenerati on of lumbosacral intervertebral disc 83689774 M51.37 hx noted. stable.. Long-term drug therapy 163253822 Z79.899 next labs due in may. History of coronary artery bypass grafting 221780388 Z95.1 hx noted. asymptomat ic. Health Concerns Section Related Observation LastModified by Organization Detai ls LastModified Time None Recorded Concern Status LastModified by Organization Details LastModified Time None Recorded Advance Directives Directive N: Payers Insurance Date Sequence Insurance Name Policy Number Policy Baig Covered Member ID Baig Member ID Guarantor Name 12/28/2022 1 DONI [id number] Liana Marcos [id number] Adrián Marcos 01/23/2023 1 [employer] MEDICARE ADVANTAGE [place]MO[place] [id number] Adrián Rodríguez [id number] Adrián Rodríguez Notes Date Note Type Note Provider Name and Address Organization Details Recorded Time 07/11/19 text/htm l patient returns today for follow-up had trigger finger releases carpal and cubital tunnel releases 06/20/2022 use doing well at this point left upper extremity Sascha Rose MD [address], [place], [address], [employer] 07/10/2022 12:34:38 09/19/19 text/htm l patient returns today for follow-up had trigger finger releases carpal and cubital tunnel releases 06/20/2022 use doing well at this point left upper extremity Sascha Rose MD [address], [place], [address], [employer] 09/18/2022 12:07:07 11/01/19 text/htm l Hip(s)Reported by PatientHPIFor associated symptoms, patient reportsnumbnessandradiation down legbut reportsno weakness,no tingling,no swelling,no redness,no warmth,no ecchymosis,no catching/locking,no popping/clicking,no buckling,no grinding,no instability,no radiation down leg,no drainage,no fever,no chills,no weight loss, andno change in bowel/bladder habits. For location, patient reportsleft. For quality, patient reportsachingandsharp. For severity, patient reportspain level 3/10andworst pain 7/10. For duration, patient reports6 monthsand___ weeks. For timing, patient reportsacute. For context, patient reportscannot identify. For alleviating factors, patient reportsnothing helps. For aggravating factors, patient reportslying down(certain movements). For previous surgery, patient reportsnone. For prior imaging, patient reportsnone. For previous injections, patient reportsnone. For previous pt, patient reportsnone. LEE Brewster [address] [facility] [address], [place], [address], [facility] [employer] [facility] 11/20/2022 13:40:22 11/23/19 23 text/htm l Hip(s)Reported by PatientHPIFor associated symptoms, patient reportsweaknessandswellingbut reportsno numbness,no redness,no ecchymosis,no catching/locking,no popping/clicking,no buckling,no grinding,no instability,no radiation down leg,no drainage,no fever,no chills,no weight loss, andno change in bowel/bladder habits. For location, patient reportsleftandlateral. For quality, patient reportsthrobbing,superficial, andfrequent. For severity, patient reportsmoderate. For duration, patient reportscontinuous since onset. For timing, patient reportsoccasional. For context, patient reportsoveruse. For alleviating factors, patient reportslying down,heat,ice,rest,exercise, andlimited weight bearing. For aggravating factors, patient reportsstanding,walking, andbending/squatting. Jonel Ayala MD [address] [facility] [address], [place], [address], [facility] [employer] [facility] [employer] [facility] 11/22/2022 12:55:19 01/02/20 23 text/htm l HypertensionReported by PatientHPIFor duration, patient reportshas noted for years. For onset/timing, patient reportsbetter. For alleviating factors, patient reportsmedication. For associated symptoms, patient reportsno shortness of breath,no fatigue,no palpitations,no decline in exercise capacity, andno snoring. Obstructive Sleep Apnea F/UReported by PatientHPIFor location, patient reportsdryness of mouthbut reportsno enlarged tonsils,no nasal passage blockage,no throat pain,no feeling of tightness in throat, andno chest congestion. For quality, patient reportsno loud snoring,no gasping for air,no witnessed apnea,no hyponasal speech, andno frequent breathing through the mouth. For onset/timing, patient reportschronic. For duration, patient reportscontinuous. For severity, patient reportsdoes not limit daily activities,no frequent sore throats resulting in excess missed days from school / work per year,no difficulty getting going in the morning, andno awakening in the middle of the night with sore throat. For context, patient reportsno lack of adequate sleep,no shift work,not currently taking medication to help sleep,no recent weight gain,no recent upper respiratory infection,no recent sick contacts,not worse with environmental exposure,not worse with seasonal allergen exposure,no hypertension, andnormal sleep hours. For alleviating factors, patient reportsrelief with cpap. For aggravating factors, patient reportsnot worse during an upper respiratory infection (a cold)andnot worse when allergies are active. For associated symptoms, patient reportsno morning headache,no awakening at night short of breath,no sweating heavily at night,no excessive sleepiness during the day,no suddenly falling asleep during the day,no napping,no impaired work performace, andno nasal congestion. HyperlipidemiaReported by PatientHPIFor duration, patient reportschronic. For complications, patient reportscoronary artery diseasebut reportsno coronary artery disease,no peripheral artery disease, andno cardiovascular disease. For risk factors, patient reportsdiabetesandhypertension. For control, patient reportsusually well controlled. For compliance, patient reportscompliant,compliant with diet, andexercises. CKD (chronic kidney disease)Reported by PatientHPIFor quality, patient reportsevaluated creatineandhypertension. For context, patient reportshypertension duration,responds to medication,history of diabetes, andcardiovascular disease (cvd). Reflux/GERDReported by PatientHPIFor severity, patient reportssame. For duration, patient reportspresent 5 or more years. For onset/timing, patient reportsgone now. For context, patient reportsnon-smoker,no drug/alcohol abuse,no drug alcohol withdrawal, andnot related to food/drink. For alleviating factors, patient reportsmedication. For associated symptoms, patient reportsno frequent coughing,no feeling of fullness/mass in throat,no hoarseness,no food getting stuck,no belching/burping,no vomiting,not vomiting blood,no regurgitation,no shortness of breath,no chest pain,no heartburn,no difficulty swallowing,no pain when swallowing,no bad taste,no decreased appetite,no weight loss,no black/tarry stools,no fatigue, andno throat pain. DiabetesReported by PatientHPIFor compliance, patient reportshas not had dietitian visit in last year,does not wear a medic alert bracelet or necklace, anddoes not keep rapid-acting carbohydrate in carbut reportscompliant with medications,compliant with follow-up visits,compliant with diet,compliant with home glucose monitoring, andhad eye doctor visit in last year. For self care, patient reportsnot monitoring home glucose. For associated symptoms, patient reportsnumbness of feetbut reportsno weight gain,no weight loss,no dizziness,no sweats,no headaches,no confusion,no increased thirst,no increased appetite,no increased urination,no blurred vision,no numbness of feet,no calluses on feet,no coronary artery disease,no kidney disease,no peripheral vascular disease,no diabetic retinopathy, andno diabetic neuropathy. For duration, patient reportschronic. For control, patient reportsusually well controlled. For context, patient reportsnormal range of home blood sugars (in the low 100s),seeing eye doctor regularly,checking feet regularly, andtaking aspirin daily. Wellness LEE Brewster [address] [facility], [facility] [address], [place], [address], [place] - [email or web address] 01/22/2023 23:59:53
[2025-03-08 07:38] VITALS: BP 132/70; PULSE 90; RESP 20; TEMP 36; O2SAT 98; BMI 40.4
--- NOTE | 2025-03-08 07:55 | WPDANESEPPF ---
Anes - Initial Pre Proc Eval Procedure: Operation Date: 03/08/25 09:00 Proposed Procedures p Screening Colonoscopy - Miguel Ángel Hawley MD Date/Time: 03/08/25 07:55 Surgeon: Miguel Ángel Hawley MD Pre Op Diagnosis: Encounter for screening for malignant neoplasm of Patient Data Age: 70 Gender: M Height: 1.8 m Weight: 131.4 kg Last Vital Signs Temp 36.0 C L 03/08/25 07:38 Pulse 90 03/08/25 07:38 Resp 20 03/08/25 07:38 BP 132/70 03/08/25 07:38 Pulse Ox 98 03/08/25 07:38 O2 Del Method Room Air 03/08/25 07:38 Allergies Allergy/AdvReac Type Severity Reaction Status Date / Time furosemide Allergy Intermediate hives Verified 03/08/25 07:48 Penicillins Allergy Intermediate hives Verified 03/08/25 07:48 Home Medications ?Medication ?Instructions ?Recorded ?Confirmed ?Type acetaminophen 650 mg 650 mg PO Q12H PRN pain 02/22/25 02/22/25 History tablet,extended release (8 Hour Pain Reliever) apixaban 5 mg tablet (Eliquis) 5 mg PO BID 02/22/25 03/08/25 History atorvastatin 80 mg tablet 80 mg PO DAILY 02/22/25 03/08/25 History empagliflozin 25 mg tablet 25 mg PO DAILY 02/22/25 03/08/25 History (Jardiance) glimepiride 1 mg tablet 1 mg PO BID 02/22/25 03/08/25 History losartan 100 mg tablet 100 mg PO DAILY 02/22/25 03/08/25 History metoprolol succinate 100 mg 100 mg PO DAILY 02/22/25 03/08/25 History tablet,extended release 24 hr montelukast 10 mg tablet 10 mg PO DAILY 02/22/25 03/08/25 History omega-3 fatty acids 500 mg capsule 2,000 mg PO DAILY 02/22/25 03/08/25 History omeprazole 20 mg capsule,delayed 20 mg PO DAILY 02/22/25 03/08/25 History release semaglutide 1 mg/dose (4 mg/3 mL) 1 mg subcut WEEKLY 02/22/25 03/08/25 History subcutaneous pen injector (Ozempic) sitagliptin phosphate 100 mg 100 mg PO DAILY 02/22/25 03/08/25 History tablet (Januvia) Patient hx anesthesia problems: none Family hx anesthesia problems: none Results Review: All pre-operative results and documents have been reviewed as part of the pre-operative evaluation. [facility] Past Medical History Medical History (Updated 03/08/25 @ 07:57 by Senthil Farah DO) Diabetes type 2, controlled Atrial fibrillation CAD (coronary artery disease) Surgical History Surgical History (Updated 03/08/25 @ 07:57 by Senthil Farah DO) History of coronary artery stent placement Hx of CABG Social History Social History Smoking status: Current every day smoker Tobacco type: cigars Alcohol intake: current Drinks per week: 8 Substance use type: does not use Living arrangements: with family Spiritual care concerns: No Anes - Eval Final PreProcedure Day of Procedure 03/08/25 07:55 Patient weight: morbidly obese Heart: regular rate and rhythm Lungs: clear to auscultation Airway: Mallampati scale class II Neurological: alert and oriented Last oral intake: >/= 8 hours ASA classification: III Emergent: no Anesthetic plan: proceed Anesthesia type and monitoring: general GIVS and standard monitoring Results Review: All pre-operative results and documents have been reviewed as part of the pre-operative evaluation. Informed Consent: The patient's anesthetic plan and its attendant risks and benefits were discussed with the patient/family/POA. Questions were solicited and answers provided to the satisfaction of the patient/family/POA.
[2025-03-08] MEDS: LACTATED RINGERS 1,000 ML 150 ML IV CONT (07:59)
--- NOTE | 2025-03-08 08:09 | SUR.PREOP ---
Upon arrival in pre-op, Patients heart rate was 146. Patient stated to be in atrial fibrillation. notified of findings and patient's heart rate is currently being monitored with vitals monitor. Patients heart rate is in normal range and notified. Patient stated he feels fine and denies any chest pain. will proceed with procedure.
--- NOTE | 2025-03-08 08:41 | PM.IMHP ---
H&P: HPI History of Present Illness Date/Time: 03/08/25 08:41 Chief Complaint: Screening colonoscopy Narrative: This is the patient's 2nd screening colonoscopy. There are no GI symptoms and there is no family history of colorectal cancer. Review of Systems Review of Systems: All systems reviewed & are unremarkable except as noted in HPI and below PMFSH Past Medical History Medical History (Updated 03/08/25 @ 08:42 by Miguel Ángel Hawley MD) Diabetes type 2, controlled Atrial fibrillation CAD (coronary artery disease) Surgical History Surgical History (Updated 03/08/25 @ 07:57 by Senthil Farah DO) History of coronary artery stent placement Hx of CABG Social History Social History Smoking status: Current every day smoker Tobacco type: cigars Alcohol intake: current Drinks per week: 8 Substance use type: does not use Living arrangements: with family Spiritual care concerns: No Meds Home Medications and Allergies Home Medications ?Medication ?Instructions ?Recorded ?Confirmed ?Type acetaminophen 650 mg 650 mg PO Q12H PRN pain 02/22/25 02/22/25 History tablet,extended release (8 Hour Pain Reliever) apixaban 5 mg tablet (Eliquis) 5 mg PO BID 02/22/25 03/08/25 History atorvastatin 80 mg tablet 80 mg PO DAILY 02/22/25 03/08/25 History empagliflozin 25 mg tablet 25 mg PO DAILY 02/22/25 03/08/25 History (Jardiance) glimepiride 1 mg tablet 1 mg PO BID 02/22/25 03/08/25 History losartan 100 mg tablet 100 mg PO DAILY 02/22/25 03/08/25 History metoprolol succinate 100 mg 100 mg PO DAILY 02/22/25 03/08/25 History tablet,extended release 24 hr montelukast 10 mg tablet 10 mg PO DAILY 02/22/25 03/08/25 History omega-3 fatty acids 500 mg capsule 2,000 mg PO DAILY 02/22/25 03/08/25 History omeprazole 20 mg capsule,delayed 20 mg PO DAILY 02/22/25 03/08/25 History release semaglutide 1 mg/dose (4 mg/3 mL) 1 mg subcut WEEKLY 02/22/25 03/08/25 History subcutaneous pen injector (Ozempic) sitagliptin phosphate 100 mg 100 mg PO DAILY 02/22/25 03/08/25 History tablet (Januvia) Allergies Allergy/AdvReac Type Severity Reaction Status Date / Time furosemide Allergy Intermediate hives Verified 03/08/25 07:48 Penicillins Allergy Intermediate hives Verified 03/08/25 07:48 Vital Signs Vital Signs - 24 hr 03/08/25 07:38 Temperature 96.8 F L Pulse Rate 90 Respiratory Rate 20 Blood Pressure 132/70 Pulse Oximetry 98 Oxygen Delivery Room Air Exam Const: General: cooperative and healthy appearing Resp: Effort & Inspection: normal respiratory effort and able to speak in complete sentences Auscultation: clear to auscultation bilaterally Cardio: Rate: regular rate Rhythm: regular rhythm GI: Inspection: normal to inspection GI Palp: No No hepatosplenomegaly present Auscultation: normal bowel sounds Rectal Exam: deferred Skin: General skin exam: normal color Psych: Appearance: grossly normal Mental Status: mental status grossly normal Assessment and Plan Assessment and plan (1) Encounter for screening colonoscopy: Code(s): Z12.11 - Encounter for screening for malignant neoplasm of colon Status: Acute Assessment and Plan: The patient is deemed a good candidate for the procedure. Consent signed. Will proceed.
--- NOTE | 2025-03-08 09:07 | S_PTH ---
PATIENT: Adrián Rodríguez LOC: [facility]z#:[id number] AGE/SX: 70/M ROOM: RE03/08/[address]: Miguel Ángel Hawley MD : [id number] BED: DIS: 03/08/2025 SPEC #: [id number] RECD: 03/08/25 09:37 STATUS: REAGAN REBhavana #: [id number] TEETEE: 03/08/25 09:[address]: Miguel Ángel Hawley DEPT: [facility] Surgical RECD BY: Shakira Wells ENTERED: 03/08/25 09:38 SP TYPE: Surgical OTHR DR: Cecilia Weiss, PAReinaldo Tissues: A - Colon Polypectomy Procedures: Hematoxylin and Eosin Stain Gross and Microscopic Level 4
[2025-03-08 09:17] VITALS: BP 109/75; PULSE 88; RESP 17; O2SAT 94
[2025-03-08 09:27] VITALS: BP 122/90; PULSE 90; RESP 18; O2SAT 96
[2025-03-08 09:37] VITALS: BP 133/90; PULSE 88; RESP 20; O2SAT 97
--- NOTE | 2025-03-08 09:57 | SUR.PHASEII ---
Dr. Hawley instructed patient to resume Eliquis in 4 days. Patient given verbal and written instruction to resume this medication on 03/12. Patient and spouse verbalize understanding.
== END 2025-03-08 09:45 | disposition home or self-care (01) ==
PROVIDERS: PCP Physician Assistant; Referring Provider Physician Assistant; Visit Provider Internal Medicine Gastroenterology
PROC: 0DJD8ZZ Inspection of Lower Intestinal Tract, Via Natural or Artificial Opening Endoscopic (ICD-10-PCS; CPT 45378; principal; 2025-03-08 09:00)
DX: Z12.11 Encounter for screening for malignant neoplasm of colon (principal); D12.3 Benign neoplasm of transverse colon; K57.30 Diverticulosis of large intestine without perforation or abscess without bleeding; K64.8 Other hemorrhoids; E11.9 Type 2 diabetes mellitus without complications; F17.290 Nicotine dependence, other tobacco product, uncomplicated; E66.01 Morbid (severe) obesity due to excess calories; Z68.41 Body mass index [BMI] 40.0-44.9, adult
CPT/HCPCS: 45381; 45385; 82948; 88305; J2003; J2704; J7120